=== PATIENT | male | born 1970 | race Caucasian/White ===

== ENCOUNTER 2018-01-07 14:26 | Emergency (ER) | payer OTHER, SELFPAY ==
[2018-01-07 14:26] VITALS: BP 115/83; PULSE 104; RESP 16; TEMP 36.5; O2SAT 97; BMI 30.2
[2018-01-07 15:28] VITALS: BP 126/94; PULSE 81; RESP 16; O2SAT 100
--- NOTE | 2018-01-07 15:30 | ED.RN ---
solid formed stool sample obtained. no signs of blood present. no signs of cdiff present.
--- NOTE | 2018-01-07 15:37 | ED.VISSUMM ---
- ER Visit Summary Date of Service: 01/07/18 Chief Complaint: Abdominal pain History of Present Illness: The patient is a 47 M presenting with abdominal pain. He states it started on Saturday. He has had nausea, vomiting, diarrhea. He denies blood in his stool or emesis. He went to urgent care today. He states when the nurse practitioner examined him he started to have right-sided abdominal pain. He was sent to the ED for further evaluation. Physical Examination: Vitals are stable. Patient is afebrile. Alert no acute distress. HEENT exam is unremarkable. Neck is supple. Lungs are clear and equal bilaterally. Heart is regular rate and rhythm. Abdomen is soft right upper quadrant and epigastric tenderness with no rebound or guarding Extremities are unremarkable. Skin is warm and dry. No focal neurologic deficit. Remainder of exam is unremarkable. Emergency Department Course and Treatment: Patient given IV fluids, Zofran. CBC shows a platelet count of 83 which is at his baseline. Chemistries show sodium 134, glucose 424, BUN 19. Total bili is 2.9, direct bili 0.56, ALT 70, lipase is normal. Urinalysis shows glucose, no infection. Records were reviewed and his total bili was 3.3 on 05/07/17. He states he has never been told that his bilirubin has been high. He was given insulin subcutaneously and IV fluids. CT abdomen pelvis shows fatty infiltration of the liver, splenomegaly. On reevaluation, patient is resting comfortably. He declines nausea medication for home. He is advised to follow-up with his primary care physician. He is advised return ED for any worsening complaints. Disposition: Discharge home Impression: Vomiting, diarrhea This note was generated with [employer] dictation software. It may contain incorrect words, spelling, and punctuation that were not noted in review of the chart prior to signing ED Disposition - Plan for ED Patient: Chief Complaint: Abd Pain Referrals: Robles Purvis MD [NON-STAFF] -
[2018-01-07 15:42] LABS: Bacteria 0 SEEN /hpf (None Seen); Mucous, Urine 0 SEEN /hpf (<or=2+); White Blood Cells 0 SEEN /hpf (0-5)
[2018-01-07 15:48] LABS: Color, Urine Yellow (Yellow); Glucose, Dipstick 1000 mg/dl (Normal); Ketone-Dipstick 5 mg/dl (Negative); Leukocyte Esterase-Dipstick Negative /ul (Negative); Nitrite-Dipstick Negative (Negative); Occult Blood-Urine 10 /ul (Negative); Protein-Dipstick 30 mg/dl (Negative); Specific Gravity, Urine 1.015 (1.002-1.030); Urine Bilirubin Dipstick Negative (Negative); Urine Clarity Clear (Clear); Urine Urobilinogen Normal (Normal)
[2018-01-07] MEDS: Ondansetron 4 MG/2 ML Vial IV (15:49)
[2018-01-07] MEDS: 0.9% Normal Saline 1,000 ML 1000 ML IV (15:49)
[2018-01-07 16:02] LABS: Red Blood Cells-Urine 0-5 SEEN /hpf (0-5); Squamous Epithelial Cells - UA 0-5 SEEN /hpf (0-5)
[2018-01-07 16:05] LABS: Absolute Neutrophil Count 5.5 X10^3/uL (2.0-7.7); Basophil# 0.03 X10^3/uL; Basophil% 0.4 % (0-1); Eosinophil# 0.05 X10^3/uL; Eosinophils% 0.4 % (0-5); Hematocrit 50.3 % (40-54); Lymphocyte % 19.5 % (19-41); Mean Corp Hgb Conc 31.8 g/gl (32-36); Mean Corpuscular Hgb 25.6 pg (27.0-32.0); Mean Corpuscular Volume 80.6 fL (80-94); Mean Platelet Vol. 10.2 fl (6.2-12.0); Monocyte# 0.51 X10^3/uL; Monocyte% 6.7 % (0-10); Neutrophil # 5.54 X10^3/uL (2.7-7.7); POSITIVE COUNT YES; POSITIVE DIFFERENTIAL NO; POSITIVE MORPHOLOGY NO; Platelet Count 83 K/mm3 (150-450); RBC Distribution Width CV 15.5 % (11.6-14.6); RBC Distribution Width SD 44.1 fl (35.1-43.9); Red Blood Count 6.24 M/mm3 (4.6-6.2); White Blood Count 7.7 K/mm3 (4.4-11.0)
[2018-01-07 16:09] LABS: AST(SGOT) 26 U/L (15-37); Alanine Aminotransfer ALT/SGPT 70 U/L (16-61); Albumin, Serum 4.4 g/dL (3.2-5.0); Alkaline Phosphatase 100 U/L (45-117); Anion Gap 8 (5-15); BUN 19 mg/dL (7-18); BUN/Creat Ratio 16.2 RATIO (10-20); Bilirubin, Direct 0.56 mg/dL (0.00-0.30); Calcium,Total 9.2 mg/dL (8.5-10.1); Chloride 97 mmol/L (98-107); Creatinine, Serum 1.17 mg/dL (0.70-1.30); EST Glomerular Filtration Rate 71 mL/min (>60); Est Glom Filt Rate - Afr Amer 86 mL/min (>60); Estimated Creatinine Clearance 73.76 ml/min; Globulin 3.7 g/dL (2.2-4.2); Glucose 424 mg/dL (74-106); Lipase 256 U/L (73-393); Protein, Total 8.1 g/dL (6.4-8.2); Sodium Level 134 mmol/L (136-145)
[2018-01-07] MEDS: Insulin Lispro 100 UNIT/ML INSULN.PEN 15 UNIT SC (16:30)
[2018-01-07] MEDS: 0.9% Normal Saline 1,000 ML 999 ML IV (17:20)
[2018-01-07 17:55] LABS: Bedside Glucose 302 mg/dL (70-110)
--- NOTE | 2018-01-07 17:58 | ED.DEP ---
ED Disposition - Plan for ED Patient: Chief Complaint: Abd Pain Instructions: ED Abdominal Pain Unkn Cause Referrals: Robles Purvis MD [NON-STAFF] -
[2018-01-07 18:11] VITALS: BP 109/78; PULSE 86; RESP 16; O2SAT 98
== END 2018-01-07 18:11 | disposition home or self-care (01) ==
PROVIDERS: Emergency Provider Emergency Medicine
DX: R19.7 Diarrhea, unspecified (principal); R11.2 Nausea with vomiting, unspecified; E11.9 Type 2 diabetes mellitus without complications; E78.00 Pure hypercholesterolemia, unspecified; Z79.4 Long term (current) use of insulin; Z79.899 Other long term (current) drug therapy
CPT/HCPCS: 74177; 80048; 80076; 81001; 82962; 83690; 85025; 96361; 96374; 99283; J7030; A4216; J2405

== ENCOUNTER 2018-02-25 00:02 | Emergency (ER) | payer OTHER, SELFPAY ==
[2018-02-25 00:03] VITALS: BP 158/103; PULSE 97; RESP 17; TEMP 36.3; O2SAT 98; BMI 30.3
--- NOTE | 2018-02-25 00:36 | CT_ITS ---
STUDY: CT BRAIN WITHOUT CONTRAST REASON FOR EXAM: Male, 48 years old. Headaches and cough RADIATION DOSAGE (If Supplied By Facility): CTDIvol = ( 44.99 ) mGy, DLP = ( 812.98 ) mGycm TECHNIQUE: Transaxial CT imaging of the brain was performed without administration of intravenous contrast material. Individualized dose optimization techniques were used for this CT. COMPARISON: None. FINDINGS: Normal soft tissue structures. Normal calvarium. Normal size ventricles and extra-axial spaces for the patient's age. Normal white matter tracts of the cerebral hemispheres. Normal basal ganglia and thalami. Normal brainstem. Normal cerebellum. There is no intracranial hemorrhage. There are no findings of an acute ischemic infarction. Normal visualized paranasal sinuses. CT/Brain/Head without Contrast IMPRESSION: Normal unenhanced CT scan of the brain. No acute findings in the brain Electronically Signed: Alessio Bridges MD at 1:28 EDT Tel , Service support ,
--- NOTE | 2018-02-25 00:36 | EKG12_ITS ---
Test Reason : HEADACHE Blood Pressure : / mmHG Vent. Rate : 082 BPM Atrial Rate : 082 BPM P-R Int : 148 ms QRS Dur : 088 ms QT Int : 368 ms P-R-T Axes : 027 -25 055 degrees QTc Int : 429 ms Normal sinus rhythm Leftward axis Confirmed by CLIFFORD NG, JESSICA ([id number]), subeditor TAMIKO SOOD ([id number] on 02/27/2018 1:40:05 PM Referred By: NAWAF Confirmed By:JESSICA HORTON MD
--- NOTE | 2018-02-25 00:39 | ED.DCSUM_ITS ---
- ER Visit Summary Date of Service: 02/25/18 Chief Complaint: [] Headache for last few days History of Present Illness: The patient is a 48 M stated he has had intermittent headache for last few days as well as muscle aches and nausea. He had a recent cough but that went away. He strained his neck on Saturday and thinks that might be the cause of his headaches. No home treatment. They wax and wane and last for a few hours at a time. Currently he has a headache in the back of his head that is mild to moderate. The reason he came in tonight is because he had a near syncopal episode. He felt lightheaded at work and his body felt tingly. He stated he is been feeling this on and off throughout the day. He felt sweaty and thinks it might of been from getting up too quickly. No chest pain or other symptoms. Denies any other medical problems other than diabetes. No heart problems. Physical Examination: [] Vital signs reviewed General: Well-nourished well-developed Head: Normocephalic atraumatic Eyes: Pupils equal round and reactive to light extraocular movements intact ENT: TMs clear no hemotympanum no trauma Neck: Nontender full range of motion Cardiovascular: Regular rate rhythm no murmurs normal S1-S2 Respiratory: No distress clear to auscultation bilaterally chest nontender Abdomen: Soft nontender nondistended normal bowel sounds no masses Back: Nontender no CVA tenderness Extremities: Nontender active range of motion ?4 extremities no trauma Skin: Normal color no trauma Neuro alert oriented cranial nerves II through XII intact normal strength sensation reflexes Test Results: [] Emergency Department Course and Treatment: [] Patient given IV fluids and Toradol. Lab work EKG and CT of his head obtained and CT head showed nothing acute. EKG shows sinus at 82 with no ischemia. CBC is normal except chronically low platelets. 74,000 today. Prior was 83,050 9000. CBC is normal except sodium 135. Glucose is 439. He normally runs high. He has not taken his insulin today. Troponin is negative. Patient was given a liter of fluids. Given IV Toradol and oral Tylenol. At this time he states he still has a headache but does feel better. I feel he can be discharged. He does have this chronic leg pain and numbness. His doctor just started him on gabapentin for possible diabetic neuropathy. He has had a lightheaded near syncopal episode. I do not think he needs admitted for this. I feel he can follow-up as an outpatient and I do not think he has had a subarachnoid hemorrhage. CT shows no mass lesions. Patient will take insulin at home Treatment Plan: [] Disposition: [] Impression: [] Headache with neck strain Near syncopal episode Uncontrolled diabetes Chronic thrombocytopenia This note was generated with [employer] dictation software. It may contain incorrect words, spelling, and punctuation that were not noted in review of the chart prior to signing ED Disposition - Plan for ED Patient: Chief Complaint: Headache Referrals: Audrey Bello, RN [Primary Care Provider] -
[2018-02-25] MEDS: 0.9% Normal Saline 1,000 ML 1000 ML IV (00:56)
[2018-02-25] MEDS: Ketorolac 30 MG/ML Syringe IV (00:56)
[2018-02-25 01:22] LABS: Mean Corpuscular Volume 80.1 fL (80-94); Mean Platelet Vol. 10.2 fl (6.2-12.0); Platelet Count 74 K/mm3 (150-450); RBC Distribution Width CV 15.9 % (11.6-14.6); RBC Distribution Width SD 45.2 fl (35.1-43.9); Red Blood Count 5.37 M/mm3 (4.6-6.2); White Blood Count 4.9 K/mm3 (4.4-11.0)
[2018-02-25 01:23] LABS: Hemoglobin 15.6 g/dl (13.0-16.5); Mean Corp Hgb Conc 36.3 g/gl (32-36); Mean Corpuscular Hgb 29.3 pg (27.0-32.0); Scan Indicated on CBC? Y/N NO
[2018-02-25 01:25] LABS: Anion Gap 9 (5-15); BUN 15 mg/dL (7-18); BUN/Creat Ratio 14.3 RATIO (10-20); Calcium,Total 8.7 mg/dL (8.5-10.1); Chloride 101 mmol/L (98-107); Creatinine, Serum 1.05 mg/dL (0.70-1.30); EST Glomerular Filtration Rate 81 mL/min (>60); Est Glom Filt Rate - Afr Amer 97 mL/min (>60); Estimated Creatinine Clearance 84.14 ml/min; Glucose 439 mg/dL (74-106); Sodium Level 135 mmol/L (136-145)
--- NOTE | 2018-02-25 01:53 | ED.DEP ---
ED Disposition - Plan for ED Patient: Disposition: Home or Assisted Living Chief Complaint: Headache Instructions: ED Headache Tension, ED Near Syncope Unkn Referrals: Audrey Bello RN [Primary Care Provider] -
[2018-02-25] MEDS: Acetaminophen 500 MG Tablet 1000 MG PO (02:02)
[2018-02-25 02:10] VITALS: BP 130/112; PULSE 77; RESP 14; O2SAT 96
== END 2018-02-25 02:33 | disposition home or self-care (01) ==
PROVIDERS: Emergency Provider Emergency Medicine
DX: R55 Syncope and collapse (principal); R51 Headache; E11.65 Type 2 diabetes mellitus with hyperglycemia; D69.6 Thrombocytopenia, unspecified; S16.1XXA Strain of muscle, fascia and tendon at neck level, initial encounter; Z79.4 Long term (current) use of insulin; Z79.899 Other long term (current) drug therapy; X58.XXXA Exposure to other specified factors, initial encounter; Y93.89 Activity, other specified; Y92.89 Other specified places as the place of occurrence of the external cause; Y99.8 Other external cause status
CPT/HCPCS: 70450; 80048; 84484; 85027; 93005; 96361; 96374; 99285; J7030; A4216

== ENCOUNTER 2018-06-06 05:43 | Day surgery (SDC) | payer OTHER, SELFPAY ==
[2018-06-06 06:07] VITALS: BP 124/85; PULSE 83; RESP 14; TEMP 37.2; O2SAT 96; BMI 14.0
[2018-06-06 06:21] LABS: Bedside Glucose 372 mg/dL (70-110)
[2018-06-06 07:56] VITALS: BP 119/67; BP 124/85; PULSE 88; RESP 16; TEMP 36.2; O2SAT 98
--- NOTE | 2018-06-06 07:58 | PCM.OP.BLANK ---
Operative Report Date of Procedure: 06/06/18 Preoperative diagnosis: Right Carpal tunnel syndrome Postoperative diagnosis: Same Title of operation: Open carpal tunnel release Right Surgeon: Dr. Leroy Murcia Anesthesia: Local w MAC Indications for surgery: Patient seen and evaluated in the office. Diagnosed with carpal tunnel syndrome. They have failed adequate nonoperative treatment. Due to persistent symptoms they wish to proceed with carpal tunnel release surgery appropriate informed consent was obtained and signed. Details of procedure: Patient was taken to the OR and transferred to the OR table. Appropriate timeouts were performed. Well-padded tourniquet was applied to the operative upper extremity proximally. Sedation given by anesthesia provider. Area was prepped with Betadine and alcohol. Local anesthetic was administered using 9 cc of 2% lidocaine plain. Operative extremity was prepped padded and draped in usual orthopedic sterile fashion for the procedure. Limb was exsanguinated. Tourniquet applied to 250 mmHg. Three centimeter incision was made over the palm. Carefully taken through skin, subcutaneous tissue, down onto the transverse carpal ligament. Transverse carpal ligament was opened at the midportion with a knife. Elevator was carefully placed underneath the transverse carpal ligament in a distal direction. I dissected down onto that with a knife. Elevator was then placed in a proximal direction, again directly underneath the transverse carpal ligament. I dissected down on that with a knife. Scissors were used at the proximal extent placed under direct visualization. This fully released the proximal extent of the transverse carpal ligament. At this point my small finger was placed proximally and distally to assure complete release of the transverse carpal ligament over the median nerve. FPL tendon was noted. No significant abnormalities were noted at the region of the carpal canal. Tourniquet was let down. Bleeding controlled with the Bovie. Wound thoroughly irrigated. No undue bleeding noted. Skin edges were reapproximated with a 4-0 nylon. Sterile bandage was applied. Patient was awoken from the anesthetic. Transferred to the room bed. To recovery room in satisfactory condition. Patient will be discharged home. Ice and elevation recommended. Pain medication as needed. Follow-up in the office next week as scheduled. This note was generated with [employer] dictation software. It may contain incorrect words, spelling, and punctuation that were not noted in checking the note before signing.
[2018-06-06 08:00] VITALS: BP 124/85; BP 127/89; PULSE 76; RESP 16; O2SAT 97
[2018-06-06 08:05] VITALS: BP 124/85; BP 125/92; PULSE 78; RESP 16; O2SAT 97
[2018-06-06 08:11] VITALS: BP 117/86; BP 124/85; PULSE 82; RESP 16; TEMP 36.2; O2SAT 96
[2018-06-06 08:55] VITALS: BP 124/85
--- OUTSIDE RECORDS SUMMARY | 2018-08-10 13:56 | XMS RPT_ITS ---
:1970 Author Organization OHIP Support Name Relationship Address Phone VIRI FREY Unavailable [address] + [address] [place] [address] TESSA, LIDYA Unavailable [address] + [place] [address] + [place] [address] TESSA, LIDYA Unavailable Unavailable + NOT GIVEN Unavailable Unavailable Unavailable NOT GIVEN Unavailable Unavailable Unavailable TESSA, LIDYA Unavailable Unavailable + NOT GIVEN Unavailable Unavailable Unavailable TESSA, LIDYA Unavailable Unavailable + NOT GIVEN Unavailable Unavailable Unavailable NOT GIVEN Unavailable Unavailable Unavailable NOT GIVEN Unavailable Unavailable Unavailable TESSA, LIDYA Unavailable Unavailable + NOT GIVEN Unavailable Unavailable Unavailable VIRI FREY Unavailable [address] + [address] [place] [address] TESSA, LIDYA Unavailable [address] + [place] [address] + [place] [address] SONUBALTAZARVIRI Unavailable [address] + [address] [place] [address] TESSA, LIDYA Unavailable [address] + [place] [address] + [place] [address] NOT GIVEN Unavailable Unavailable Unavailable TESSA, LIDYA Unavailable Unavailable + NOT GIVEN Unavailable Unavailable Unavailable TESSA, LIDYA Unavailable Unavailable + NOT GIVEN Unavailable Unavailable Unavailable TESSA, LIDYA Unavailable Unavailable + NOT GIVEN Unavailable Unavailable Unavailable Care Team Providers Name Role Phone NIKKO DUKES (INTERNAL SECURITY MANAGER) Attending Unavailable LAURY LINDSEY (CONFERENCE RESERVATIONIST) Attending Unavailable LAURY LINDSEY (CONFERENCE RESERVATIONIST) Referring Unavailable SHELDON CARROLL Attending Unavailable NIKKO DUKES (INTERNAL SECURITY MANAGER) Referring Unavailable OMDEYANIRA CAYETANO DO Admitting Unavailable OMDEYANIRA CAYETANO DO Attending Unavailable CAYETANO STALLWORTH DO Primary Care Unavailable CYNTHIA HAAS MD Consulting Unavailable PROVIDER, UNKNOWN Consulting Unavailable OMDEYANIRA CAYETANO DO Admitting Unavailable CAYETANO STALLWORTH DO Attending Unavailable CAYETANO STALLWORTH DO Primary Care Unavailable CNYTHIA HAAS MD Consulting Unavailable CYNTHIA HAAS MD Referring Unavailable PROVIDER, UNKNOWN Consulting Unavailable CAMERON, DR RAJ Arthur Admitting Unavailable CAMERON, DR RAJ Arthur Attending Unavailable CYNTHIA HAAS MD Referring Unavailable CAMERON, DR RAJ Arthur Primary Care Unavailable CYNTHIA HAAS MD Consulting Unavailable PROVIDER, UNKNOWN Consulting Unavailable MART HENDRIX CNP Admitting Unavailable MART HENDRIX CNP Attending Unavailable MART HENDRIX CNP Primary Care Unavailable CYNTHIA HAAS MD Consulting Unavailable PROVIDER, UNKNOWN Consulting Unavailable MART HENDRIX CNP Admitting Unavailable MART HENDRIX CNP Attending Unavailable MART HENDRIX CNP Primary Care Unavailable CYNTHIA HAAS MD Consulting Unavailable PROVIDER, UNKNOWN Consulting Unavailable HABERBERGER, JACKIE M Admitting Unavailable HABERBERGER, JACKIE M Attending Unavailable MART HENDRIX CNP Referring Unavailable HABERBERGER, JACKIE M Primary Care Unavailable MART HENDRIX CNP Consulting Unavailable PROVIDER, UNKNOWN Consulting Unavailable PROVIDER, UNKNOWN Consulting Unavailable MART HENDRIX CNP Admitting Unavailable MART HENDRIX CNP Attending Unavailable MART HENDRIX CNP Primary Care Unavailable CYNTHIA HAAS MD Consulting Unavailable PROVIDER, UNKNOWN Consulting Unavailable RYAN, NAEEM PAC Admitting Unavailable RYAN, NAEEM PAC Attending Unavailable RYAN, NAEEM PAC Primary Care Unavailable CYNTHIA HAAS MD Consulting Unavailable PROVIDER, UNKNOWN Consulting Unavailable SIMON MYERS Admitting Unavailable SIMON MYERS Attending Unavailable SIMON MYERS Primary Care Unavailable CYNTHIA HAAS MD Consulting Unavailable CYNTHIA HAAS MD Referring Unavailable PROVIDER, UNKNOWN Consulting Unavailable LEROY SOOD DR Admitting Unavailable LEROY SOOD DR Attending Unavailable LEROY SOOD DR Primary Care Unavailable CYNTHIA HAAS MD Consulting Unavailable PROVIDER, UNKNOWN Consulting Unavailable MART HENDRIX CNP Admitting Unavailable MART HENDRIX CNP Attending Unavailable MART HENDRIX CNP Primary Care Unavailable CYNTHIA HAAS MD Consulting Unavailable PROVIDER, UNKNOWN Consulting Unavailable Leroy Sood Attending Unavailable Leroy Sood Referring Unavailable Mart Hendrix Primary Care Unavailable Becky Darden Attending Unavailable Mart Hendrix Primary Care Unavailable Mart Hendrix Primary Care Unavailable Myles Ayala Attending Unavailable PROBLEMS PROBLEMS DATE TYPE CONDITION / CODE ATTENDING STATUS SOURCE 05/26/2018 Principle Type 2 diabetes MART HENDRIX Active Rene Pomerejeevan Diagnosis mellitus with 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 / Repository E1121(ICD-10) 09/24/2017 Admitting Headache / DR RAJ BARNES Active Rene Pomerene Diagnosis R51(ICD-10) [facility] Repository 09/24/2017 Principle Migraine, DR RAJ BARNES Active Rene Pomerene Diagnosis unspecified, not [facility] without status Repository migrainosus / L62782(ICD-10) 07/30/2017 Active Unknown / SHELDON CARROLL Active Jansen UNK(Unknown) [facility] [place] Repository 09/28/2013 Active Type 2 diabetes NA Active [place] 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 / Repository E11.21(ICD-10) 09/28/2013 Active Type 2 diabetes NA Active [place] mellitus with [facility] hyperglycemia / [place] E11.65(ICD-10) Repository PROCEDURES PROCEDURES No Procedure Records FoundRESULTS RESULTS OPERATIVE REPORT Observed: 06/06/2018 Status: F Source: [place] 8:00 AM [facility] REPOSITORY [facility] Medical Records Department [address] [place] [address] Operative Report 06/06/18 0758 MR#: [id number] Acct: [id number] Name: TITI ZARATE Rep #: [id number] : 1970 48 From: Leroy Sood MD PCP: TIM Amor Status: REG VAC Y Location: [place] [address] Operative Report Date of Procedure: 06/06/18 Preoperative diagnosis: Right Carpal tunnel syndrome Postoperative diagnosis: Same Title of operation: Open carpal tunnel release Right Surgeon: Dr. Leroy Sood Anesthesia: Local w MAC Indications for surgery: Patient seen and evaluated in the office. Diagnosed with carpal tunnel syndrome. They have failed adequate nonoperative treatment. Due to persistent symptoms they wish to proceed with carpal tunnel release surgery appropriate informed consent was obtained and signed. Details of procedure: Patient was taken to the OR and transferred to the OR table. Appropriate timeouts were performed. Well-padded tourniquet was applied to the operative upper extremity proximally. Sedation given by anesthesia provider. Area was prepped with Betadine and alcohol. Local anesthetic was administered using 9 cc of 2% lidocaine plain. Operative extremity was prepped padded and draped in usual orthopedic sterile fashion for the procedure. Limb was exsanguinated. Tourniquet applied to 250 mmHg. Three centimeter incision was made over the palm. Carefully taken through skin, subcutaneous tissue, down onto the transverse carpal ligament. Transverse carpal ligament was opened at the midportion with a knife. Elevator was carefully placed underneath the transverse carpal ligament in a distal direction. I dissected down onto that with a knife. Elevator was then placed in a proximal direction, again directly underneath the transverse carpal ligament. I dissected down on that with a knife. Scissors were used at the proximal extent placed under direct visualization. This fully released the proximal extent of the transverse carpal ligament. At this point my small finger was placed proximally and distally to assure complete release of the transverse carpal ligament over the median nerve. FPL tendon was noted. No significant abnormalities were noted at the region of the carpal canal. Tourniquet was let down. Bleeding controlled with the Bovie. Wound thoroughly irrigated. No undue bleeding noted. Skin edges were reapproximated with a 4-0 nylon. Sterile bandage was applied. Patient was awoken from the anesthetic. Transferred to the room bed. To recovery room in satisfactory condition. Patient will be discharged home. Ice and elevation recommended. Pain medication as needed. Follow-up in the office next week as scheduled. This note was generated with E96 dictation software. It may contain incorrect words, spelling, and punctuation that were not noted in checking the note before signing. 06/06/18 0800 <Electronically signed by Leroy Sood MD> Date Leroy Sood MD CC: EYEGLASS LENS GRINDER-C Mart Hendrix; Leroy Sood MD Signed BEDSIDE GLUCOSE Collected: 06/06/2018 Status: F Source: [place] 6:12 AM [facility] REPOSITORY TYPE CODE TESTS RESULT OUT OF REFERENCE UNITS RANGE LAB L501.080 70-110 mg/dL High BEDSIDE GLU 372 Result Comment: MANAGEMENT OF PATIENT CARE PER NURSING PROTOCOL Performed By: #### L501.080 #### [facility] Laboratory Point of Care [facility] [place] [address] URINALYSIS Collected: 04/15/2018 Status: F Source: [place] 5:30 AM [facility] REPOSITORY TYPE CODE TESTS RESULT OUT OF REFERENCE UNITS RANGE LAB URINALYSIS (LOINC) URINALYSIS Result Comment: URINALYSIS LAB Specimen Type(LOINC) Specimen Type UNSPECIFIED LAB Color(LOINC) NORMAL: YELLOW Color yellow LAB Clarity(LOINC) NORMAL: CLEAR Clarity clear LAB ph(LOINC) NORMAL: 5.0-8.0 ph 5 LAB Protein(LOINC) NORMAL: NEGATIVE Protein 100 Abnormal LAB Glucose(LOINC) NORMAL: NORMAL Glucose 250 Abnormal LAB Ketone(LOINC) NORMAL: NEGATIVE Ketone 50 Abnormal LAB Bilirubin(LOINC) NORMAL: NEGATIVE NEG Bilirubin LAB Blood(LOINC) NORMAL: NEGATIVE Blood 10 Abnormal LAB Urobilinog(LOINC NORMAL: ) NORMAL NORM Urobilinog LAB Sp NORMAL: [place](LOINC) 1.010-1.030 Sp 1.025 [place] LAB Nitrite(LOINC) NORMAL: NEGATIVE Nitrite NEG LAB Leukocytes(LOINC NORMAL: ) NEGATIVE NEG Leukocytes LAB Microscopic(LOIN C) SEE Microscopic BELOW Result Comment: MICROSCOPIC LAB Wbc(LOINC) 0-5/hpf Wbc NONE LAB Rbc(LOINC) 0-3/hpf Rbc NONE LAB Casts(LOINC) Casts NONE LAB Crystals(LOINC) Crystals NONE LAB Amorphous(LOINC) Amorphous NONE LAB Bacteria(LOINC) Bacteria TRACE LAB Epi Cells(LOINC) Epi Cells NONE LAB Mucous(LOINC) Mucous 1+ LAB Yeast(LOINC) Yeast NONE Performed By: #### [id number] #### [facility],[address] [place] [address] CBC Collected: 04/15/2018 Status: F Source: [facility] 4:25 AM [facility] REPOSITORY TYPE CODE TESTS RESULT OUT OF RANGE REFERENCE UNITS LAB CBC(LOINC) CBC Result Comment: CBC-COMPLETE BLOOD COUNT LAB WBC(LOINC) 4.5 - 10.8 x 10EE3/UL WBC 6.6 LAB RBC(LOINC) 4.50 - x 10EE6/UL 6.00 RBC 5.81 LAB HEMOGLOBIN(LOINC 13.0 - g/dl ) 17.5 HEMOGLOBIN 17.3 LAB HEMATOCRIT(LOINC 40.0 - % ) 52.0 HEMATOCRIT 47.5 LAB MCV(LOINC) 81 - 98 fl MCV 82 LAB MCH(LOINC) 27 - 33 pg MCH 30 LAB MCHC(LOINC) 32 - 36 X10 3 MCHC High 37 LAB RDW/CV(LOINC) 12.0 - % 15.6 RDW/CV High 17.1 LAB PLATELET(LOINC) 150 - 450 x10EE3/UL PLATELET Low 73 LAB MPV(LOINC) 6.4 - 10.5 fl MPV 8.3 Result Comment: AUTOMATED DIFFERENTIAL LAB NEUT %(LOINC) 46.0 - 76.0 % NEUT % 71.5 LAB LYMPH %(LOINC) 20.0 - 45.0 % LYMPH % 21.3 LAB MONOS %(LOINC) 0.0 - 10.0 % MONOS % 5.5 LAB EO %(LOINC) 0.0 - 7.0 % EO % 0.9 LAB BASO %(LOINC) 0.0 - 2.0 % BASO % 0.8 LAB Lymph #(LOINC) 0.80 - 2.80 x10EE3/U L Lymph # 1.40 LAB Neut #(LOINC) 1.50 - 7.10 x10EE3/U L Neut # 4.70 LAB [place] #(LOINC) 0.20 - 1.00 x10EE3/U L [place] # 0.40 LAB EO #(LOINC) 0.00 - 0.50 x10EE3/U L EO # 0.10 LAB Baso #(LOINC) 0.00 - 0.10 x10EE3/U L Baso # 0.10 LAB MANUAL DIFF(LOINC) MANUAL DIFF N/A LAB MORPHOLOGY(LOINC ) MORPHOLOGY N/A Result Comment: {CD] Performed By: #### [id number] #### [place] [address] KETONE, BLOOD, QUAL Collected: 04/15/2018 Status: F Source: [facility] 4:25 [facility] REPOSITORY TYPE CODE TESTS RESULT OUT OF REFERENCE UNITS RANGE LAB KETONES(LO MEAGHAN - INC) NEGATIVE KETONES NEGATIVE Result Comment: SPECIMEN SERUM Performed By: #### [id number] #### [place] [address] LIPASE Collected: 04/15/2018 Status: F Source: [facility] 4:25 [facility] REPOSITORY TYPE CODE TESTS RESULT OUT OF REFERENCE UNITS RANGE LAB LIPASE(LOIN 18.0 - 51.0 U/L C) LIPASE 44.0 Performed By: #### [id number] #### [place] [address] TROPONIN Collected: 04/15/2018 Status: F Source: [facility] 4:25 [facility] REPOSITORY TYPE CODE TESTS RESULT OUT OF REFERENCE UNITS RANGE LAB TROPONIN 0.00 - 0.05 ng/ml I(LOINC) TROPONIN I <0.01 Result Comment: Elevated troponin (above the 99th percentile) usually indicates myocardial ischemia. Results must be interpreted within the clinical setting. 1.Non-ischemic pathology can also cause elevated troponin levels (e.g., acute pulmonary embolism, myocarditis, pericarditis, heart failure, intracranial injury, rhabdomyolisis, sepsis, shock and renal insufficiency). 2.Approximately 1% of healthy adults have elevated troponin levels. 3.Analytical false positive results rarely occur(due to multiple interferences such as heterophile antibodies). Performed By: #### [id number] #### [facility],[address] [place] [address] CMP WITH EGFR Collected: 04/15/2018 Status: F Source: [facility] 4:25 AM [facility] REPOSITORY TYPE CODE TESTS RESULT OUT OF RANGE REFERENCE UNITS LAB CMP with eGFR(LOINC) CMP with eGFR Result Comment: COMPREHENSIVE METABOLIC PANEL LAB SODIUM(LOINC) 136 - 145 mmol/l SODIUM Low 133 LAB POTASSIUM(LOINC) 3.5 - 5.1 mmol/L POTASSIUM 3.9 LAB CHLORIDE(LOINC) 98 - 107 mmol/L CHLORIDE 99 LAB CO2(LOINC) 21.0 - mmol/L 31.0 CO2 23.8 LAB GLUCOSE(LOINC) 74 - 106 mg/dl GLUCOSE High 392 LAB BUN(LOINC) 6 - 20 mg/dl BUN 15 LAB CREATININE(LOINC) 0.7 - 1.3 mg/dl CREATININE 0.8 LAB AST/SGOT(LOINC) 13 - 39 U/L AST/SGOT 25 LAB ALK PHOS(LOINC) 38 - 126 U/L ALK PHOS 81 LAB CALCIUM(LOINC) 8.6 - mg/dl 10.2 CALCIUM 9.3 LAB TOTAL 6.4 - 8.3 g/dl PROTEIN(LOINC) TOTAL PROTEIN 6.7 LAB ALBUMIN(LOINC) 3.4 - 4.8 g/dL ALBUMIN 4.6 LAB GLOBULIN(LOINC) 1.5 - 3.8 G/DL GLOBULIN 2.1 LAB A/G RATIO(LOINC) 0.9 - 1.6 A/G High RATIO 2.2 LAB TOTAL BILI(LOINC) 0.0 - 1.5 mg/dl TOTAL High BILI 2.3 LAB B/C RATIO(LOINC) 0 - 30 ratio B/C RATIO 19 LAB ALT/SGPT(LOINC) 10 - 40 U/L ALT/SGPT High 46 LAB ANION GAP(LOINC) 10 - 20 mmol/L ANION GAP 14 LAB AGE(LOINC) years AGE 48 LAB eGFR(LOINC) 60 - 999 ML/MINUTE eGFR >60 LAB eGFR(AA)(LOINC) 60 - 999 ML/MINUTE eGFR(AA) >60 Result Comment: ACCORDING TO THE NATIONAL KIDNEY DISEASE EDUCATION PROGRAM(NKDE), A NORMAL eGFR IS A VALUE GREATER THAN OR EQUAL TO 60 ML/MIN/1.73 SQ METERS. CHRONIC KIDNEY DISEASE: <60mL/MIN/1.73 SQ METERS KIDNEY FAILURE: <15mL/MIN/1.73 SQ METERS THIS TEST SHOULD ONLY BE USED FOR PATIENTS 18 YEARS OF AGE AND OLDER. Performed By: #### [id number] #### [facility],[address] [place] [address] CHEST 1 VIEW Observed: 04/15/2018 Status: F Source: [facility] 4:21 AM [place] [address] Patient: TITI ZARATE Phone#: : 1970 Age: 48 Gender: M Pt. Type: ER Account: [id number] Location: [facility] Ordering: SIMON MYERS Exam Date: 04/15/2018/4:00 Family Phys: CYNTHIA HAAS Charge Code: [id number] Physician: [place] Order #: [id number] DLP Dose#: PROCEDURE: X-RAY CHEST 1 VIEW COMPARISON: [facility], XR, CHEST AP, 05/07/2017, 21:41. INDICATIONS: Cough FINDINGS: LUNGS: Normal. No significant pulmonary parenchymal abnormalities. VASCULATURE: Normal. Unremarkable pulmonary vasculature. CARDIAC: Normal. No cardiac silhouette abnormality or cardiomegaly. MEDIASTINUM: Normal. No visible mass or adenopathy. PLEURA: Normal. No effusion or pleural thickening. BONES: Normal. No fracture or visible bony lesion. OTHER: Negative. CONCLUSION: No acute disease. No significant change has occurred. Dictated by: Claudia Abbasi MD on 04/15/2018 at 8:44 Approved by: Claudia Abbasi MD on 04/15/2018 at 8:44 EMERGENCY REPORT Observed: 04/15/2018 Status: F Source: [place] 3:22 AM [facility] EMERGENCY ROOM REPORT NAME ACCOUNT SEX AGE ADMIT DISCHARGE PT MED. RECORD# NUMBER DATE DATE TITI BARTON [id number] Siri 48 04/15/18 04/15/18 3 C [id number] ROOM: ER DATE OF : 1970 DICTATING PHYSICIAN: Siomn Myers HISTORY OF PRESENT ILLNESS: This is a 48-year-old male with a past medical history of type 2 diabetes who presents with concern for feeling unwell with nausea that began approximately 2 hours ago. The patient also states that he has had 2 episodes of diarrhea. He denies any chest pain, shortness of breath, lightheadedness or dizziness. The patient states that he has been noncompliant with his diabetic medication. He denies any abdominal pain. PAST MEDICAL HISTORY: Type 2 diabetes. PAST SURGICAL HISTORY: Orthopedic surgeries. SOCIAL HISTORY: He denies any drugs, alcohol or tobacco abuse. PHYSICAL EXAMINATION: The patient appears well and nontoxic. Vital signs upon arrival show mild tachycardia but otherwise normal with normotensive blood pressure and afebrile. Head: Normocephalic without signs of trauma. Eyes: Extraocular motions are intact, PERRLA. Mouth: Oropharynx is clear with evidence of tacky mucous membranes. Lungs are clear to auscultation bilaterally without wheezing or rhonchi. Heart: S1 and S2 appreciated without murmurs. Abdomen is soft and nontender. No hepatosplenomegaly. Musculoskeletal: Muscle strength is +5/5 in the upper and lower extremities. Neurologic: Alert and oriented x3. Skin: No evidence of open wounds, ecchymosis, erythema or warmth. Psychiatric: Mood and affect are normal. DIAGNOSTIC DATA: EKG shows normal sinus rhythm without signs of ischemia. Chest x-ray shows no acute infiltrate. BGT on arrival is significantly elevated. Laboratories are within normal limits with no significant anion gap or signs of acidosis. Ketones are negative. EMERGENCY DEPARTMENT COURSE AND TREATMENT: Upon arrival, the patient appears well but is having some retching. His abdomen is benign on examination. Initial BGT is significantly elevated. DKA work-up was done, which shows no evidence of anion gap or acidosis. He is also ketone negative. He was given a total of 2 liters of normal saline. The patient did come down appropriately. No evidence of current infection. This is likely secondary to noncompliance. The patient was given 8 units of regular insulin. He will be asked to take his medication whenever he gets home. He was asked to follow up with his primary care provider within the next 2 to 3 days. He was Page 1 of 2 TITI ZARATE Emergency Room Report asked to return for any new or worsening symptoms. The patient was agreeable with this plan and was discharged home in stable condition. DIAGNOSES: 1. Hyperglycemia. 2. Nausea. Dictated By: Simon Myers DO 05/01/18 22:30 JOB #: [id number] Transcribed By: elmira 05/02/18 09:37 Electronically signed by: E-SIGN: Simon Myers D.O. 05/12/18 04:09 Page 2 of 2 TITI ZARATE Emergency Room Report HGB A1C Collected: 04/03/2018 Status: F Source: [place] 10:25 AM [facility] TYPE CODE TESTS RESULT OUT OF RANGE REFERENCE UNITS LAB HGB 4.4 - 6.4 % A1C(LOINC) High HGB A1C 7.5 Result Comment: {HB] {A1] Performed By: #### [id number] #### [place] [address] TSH Collected: 03/04/2018 Status: F Source: [place] 10:34 AM [facility] TYPE CODE TESTS RESULT OUT OF RANGE REFERENCE UNITS LAB TSH(LOINC) 0.34 - 5.60 uIU/ml TSH 2.21 Performed By: #### [id number] #### [place] [address] HGB A1C Collected: 03/04/2018 Status: F [facility] TYPE CODE TESTS RESULT OUT OF RANGE REFERENCE UNITS LAB HGB 4.4 - 6.4 % A1C(LOINC) High HGB A1C 6.9 Result Comment: {HB] {A1] Performed By: #### [id number] #### [place] [address] EMERGENCY REPORT Observed: 03/03/2018 Status: F Source: [place] 3:13 PM [facility] EMERGENCY ROOM REPORT NAME ACCOUNT SEX AGE ADMIT DISCHARGE PT MED. RECORD# NUMBER DATE DATE TYPE TITI ZARATE [id number] M 48 03/03/18 03/03/18 3 C [id number] ROOM: ER DATE OF : 1970 DICTATING PHYSICIAN: Jackie Corral CHIEF COMPLAINT: Hand and feet numbness and tingling that has been going on for several months. HISTORY OF PRESENT ILLNESS: He had a primary care physician who did no additional testing. He went to see another physician, and he said she put him on Neurontin and it did not help. It has continued for months on end where he gets tingling in his hand, tingling in his feet when he is grabbing the steering wheel or at work. He has not seen a neurologist or had any sort of workup for paresthesias. Nothing is new or acute. It has all been going for several months. No new headaches, blurred vision, double vision, history of MS, neck pain, chest pain, shortness of breath, nausea, vomiting, abdominal pain, diarrhea, fevers, chills, or neurological deficits. PAST MEDICAL HISTORY: Depression, anxiety, and high blood pressure. PAST SURGICAL HISTORY: See nursing notes. MEDICATIONS: See nursing notes. FAMILY HISTORY: Noncontributory. SOCIAL HISTORY: He denies alcohol, tobacco, or illicit drug abuse. REVIEW OF SYSTEMS: Ten systems reviewed and present above in the HPI. PHYSICAL EXAMINATION: Vital signs: Blood pressure needs to be rechecked manually at the bedside, respiratory rate 16, pulse 100, temperature 98.2, O2 saturation 96% on room air. General: Well-developed, well-nourished, well-hydrated, alert and oriented x3 with a GCS of 15. Head: Normocephalic and atraumatic. Pupils are equal and reactive to light bilaterally. Extraocular muscles intact. Mucous membranes are moist. Midface is stable. Teeth are intact. Trachea is midline. Neck is supple. Full range of motion of the neck without any difficulty. Heart rate and rhythm are regular without murmur, gallop, or rub. Lungs: Clear to auscultation bilaterally without wheeze, rales, or rhonchi. Abdomen: Soft. No reproducible tenderness, guarding, rebound, or rigidity. Skin is warm and dry without cyanosis, ecchymosis, petechia, or purpura. The patient ambulates without any difficulty. No focal or neurological deficits. Cranial nerves II-XII are grossly intact without focal or neurological deficits. Page 1 of 2 TITI ZARATE Emergency Room Report EMERGENCY DEPARTMENT COURSE AND TREATMENT: He describes chronic paresthesias, which can be a number of different things all of which need to be worked up as an outpatient by a neurologist who no one has referred him to. He needs testing for EMG, heavy metal poisoning and toxicity. This is not acute and the differential diagnosis is very broad, but would need to be started by a neurologist. DIAGNOSIS: Chronic paresthesias. PLAN/DISPOSITION: There is not any additional testing I can do in the emergency department. They CAT scanned his head in [place]. He says he is having trouble working. 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 I told him I cannot give him off work for extensive periods of time. I have however given him information to follow up with [facility], and he is calling tomorrow and scheduling an appointment, and we discussed specific reasons for ED return sooner. Dictated By: Jackie Corral DO 03/03/18 16:15 JOB #: [id number] Transcribed By: am 03/03/18 17:35 Electronically signed by: E-Sign: JACKIE CORRAL MD 04/08/18 12:00 Page 2 of 2 TITI ZARATE Emergency Room Report 12 LEAD ELECTROCARDIOGRAM Observed: 02/27/2018 Status: F Source: [place] 1:40 PM [facility] REPOSITORY [facility] Cardiovascular Services [address] [place] [address] [id number] 12 Lead EKG 02/25/18 0049 MR#: [id number] Acct: [id number] Name: TITI ZARATE Rep #: [id number] : 1970 48 From: Ty Oneill MD Attending Dr: Status: DEP ER Ordering Dr: Myles Ayala MD Date: 02/25/18 Location: ED Sex: M C Admitted: Test Reason : HEADACHE Blood Pressure : / mmHG Vent. Rate : 082 BPM Atrial Rate : 082 BPM P-R Int : 148 ms QRS Dur : 088 ms QT Int : 368 ms P-R-T Axes : 027 -25 055 degrees QTc Int : 429 ms Normal sinus rhythm Leftward axis Confirmed by TY ONEILL MD ([id number]), web editor TAMIKO SOOD ([id number]) on 02/27/2018 1:40:05 PM Referred By: NAWAF Confirmed By:TY ONEILL MD 02/27/18 1340 Date Ty Oneill MD CC: RITO Hendrix; Myles Ayala MD Signed DISCHARGE INSTRUCTION Observed: 02/25/2018 Status: F Source: CHAD 5:44 AM [facility] REPOSITORY [facility] Medical Records Department [address] [place] [address] Discharge Instruction 02/25/18 0153 MR#: [id number] Acct: [id number] Name: TITI ZARATE Rep #: [id number] : 1970 48 From: Myles Ayala MD PCP: Mart Hendrix APRN Status: DEP ER ED Disposition - Plan for ED Patient: Disposition: Home or Assisted Living Chief Complaint: Headache Instructions: ED Headache Tension, ED Near Syncope Unkn Referrals: Mart Hendrix, RN [Primary Care Provider] - What to do if you have Problems For any increased pain, shortness of breath, bleeding, nausea or vomiting, chest pain, or any unexpected problems, contact your Primary Care Provider. Call [facility] ([phone]) or report to the closest Emergency Room. Call 911 if necessary. 02/25/18 0544 <Electronically signed by Myles Ayala MD> Date Myles Ayala MD Cosigner Signature (If Indicated): Date CC: RITO Hendrix EMERGENCY DEPARTMENT Observed: 02/25/2018 Status: F Source: CHAD SUMMARY 5:44 AM [facility] REPOSITORY [facility] Medical Records Department [address] [place] [address] Emergency Department Summary 02/25/18 0038 MR#: [id number] Acct: [id number] Name: TITI ZARATE Rep #: [id number] : 1970 48 From: Myles Ayala MD PCP: Mart Hendrix APRN Status: DEP ER - ER Visit Summary Date of Service: 02/25/18 Chief Complaint: [] Headache for last few days History of Present Illness: The patient is a 48 M stated he has had intermittent headache for last few days as well as muscle aches and nausea. He had a recent cough but that went away. He strained his neck on Saturday and thinks that might be the cause of his headaches. No home treatment. They wax and wane and last for a few hours at a time. Currently he has a headache in the back of his head that is mild to moderate. The reason he came in tonight is because he had a near syncopal episode. He felt lightheaded at work and his body felt tingly. He stated he is been feeling this on and off throughout the day. He felt sweaty and thinks it might of been from getting up too quickly. No chest pain or other symptoms. Denies any other medical problems other than diabetes. No heart problems. Physical Examination: [] Vital signs reviewed General: Well-nourished well-developed Head: Normocephalic atraumatic Eyes: Pupils equal round and reactive to light extraocular movements intact ENT: TMs clear no hemotympanum no trauma Neck: Nontender full range of motion Cardiovascular: Regular rate rhythm no murmurs normal S1-S2 Respiratory: No distress clear to auscultation bilaterally chest nontender Abdomen: Soft nontender nondistended normal bowel sounds no masses Back: Nontender no CVA tenderness Extremities: Nontender active range of motion 4 extremities no trauma Skin: Normal color no trauma Neuro alert oriented cranial nerves II through XII intact normal strength sensation reflexes Test Results: [] Emergency Department Course and Treatment: [] Patient given IV fluids and Toradol. Lab work EKG and CT of his head obtained and CT head showed nothing acute. EKG shows sinus at 82 with no ischemia. CBC is normal except chronically low platelets. 74,000 today. Prior was 83,050 9000. CBC is normal except sodium 135. Glucose is 439. He normally runs high. He has not taken his insulin today. Troponin is negative. Patient was given a liter of fluids. Given IV Toradol and oral Tylenol. At this time he states he still has a headache but does feel better. I feel he can be discharged. He does have this chronic leg pain and numbness. His doctor just started him on gabapentin for possible diabetic neuropathy. He has had a lightheaded near syncopal episode. I do not think he needs admitted for this. I feel he can follow-up as an outpatient and I do not think he has had a subarachnoid hemorrhage. CT shows no mass lesions. Patient will take insulin at home Treatment Plan: [] Disposition: [] Impression: [] Headache with neck strain Near syncopal episode Uncontrolled diabetes Chronic thrombocytopenia This note was generated with [employer] software. It may contain incorrect words, spelling, and punctuation that were not noted in review of the chart prior to signing ED Disposition - Plan for ED Patient: Chief Complaint: Headache Referrals: Mart Hendrix, RN [Primary Care Provider] - What to do if you have Problems For any increased pain, shortness of breath, bleeding, nausea or vomiting, chest pain, or any unexpected problems, contact your Primary Care Provider. Call [facility] ([phone]) or report to the closest Emergency Room. Call 911 if necessary. 02/25/18 0544 <Electronically signed by Myles Ayala MD> Date Myles Ayala MD Cosigner Signature (If Indicated): Date CC: RITO Hendrix CBC-COMPLETE BLOOD CNT Collected: 02/25/2018 Status: F Source: CHAD NO DIFF 12:55 AM [facility] REPOSITORY TYPE CODE TESTS RESULT OUT OF RANGE REFERENCE UNITS LAB L100.1000 4.4-11.0 K/mm3 Normal WBC 4.9 LAB L100.1200 4.6-6.2 M/mm3 Normal RBC 5.37 LAB L100.1300 13.0-16.5 g/dl Normal HGB 15.6 LAB L100.1400 40-54 % Normal HCT 43.0 LAB L100.1500 80-94 fL Normal MCV 80.1 LAB L100.1600 27.0-32.0 pg Normal MCH 29.3 LAB L100.1700 32-36 g/gl High MCHC 36.3 LAB L100.1810 11.6-14.6 % High RDW CV 15.9 LAB L100.1820 35.1-43.9 fl High RDW SD 45.2 LAB L100.1900 150-450 K/mm3 Low PLT 74 LAB L100.2000 6.2-12.0 fl Normal MPV 10.2 Performed By: #### L100.0500 #### [facility] [address] [place], [address] BASIC METABOLIC Collected: 02/25/2018 Status: F Source: [place] PROFILE (BMP) 12:55 AM [facility] REPOSITORY TYPE CODE TESTS RESULT OUT OF RANGE REFERENCE UNITS LAB L501.0100 74-106 mg/dL High GLU 439 Result Comment: Glucose result greater than or equal to 200 mg/dL suggests DIABETES MELLITUS per A.D.A. criteria. Please note revised GLUCOSE reference range effective 2017. LAB L501.1000 7-18 mg/dL Normal BUN 15 LAB L501.1100 0.70-1.30 mg/dL Normal CREAT,SERUM 1.05 Result Comment: The validity of the calculated GFR AND GFRAA in patients over 70 years has not been determined. Clinical correlation is essential. LAB L501.1110 >60 mL/min Normal EST GFR 81 Result Comment: Non- GFR Calc LAB L501.1115 >60 mL/min Normal EST GFR - AA 97 Result Comment: GFR Calc LAB L501.1255 ml/min Normal Estimated CRCL 84.14 LAB L501.1300 10-20 RATIO Normal BUN/CRE 14.3 LAB L501.2200 8.5-10 mg/dL Normal .1 CA 8.7 LAB L501.5300 136-14 mmol/L Low 5 NA 135 LAB L501.5600 3.5-5. mmol/L Normal 1 K 4.0 LAB L501.5900 98-107 mmol/L Normal CL 101 LAB L501.6100 21.0-3 mmol/L Normal 2.0 CO2 25.0 LAB L501.6200 5-15 Normal GAP 9 Performed By: #### L500.2500, L501.4010 #### [facility] [address] [place], [address] TROPONIN-I Collected: 02/25/2018 Status: F Source: [place] 12:55 AM [facility] REPOSITORY TYPE CODE TESTS RESULT OUT OF RANGE REFERENCE UNITS LAB L501.4010 <0.045 ng/mL Normal < 0.015 TROPONIN-I Result Comment: TROPONIN-I EXPECTED VALUES <0.045 Negative 0.045 - 0.590 Consistent with Cardiac Damage > OR = 0.600 Critical Value Not every elevated troponin is indicative of MO. These values should be used with clinical judgement in examining the patient's clinical picture for diagnosis. To establish a diagnosis of MO versus myocardial injury, there must be a demonstrated rise and/or fall in the troponin values, in addition to ischemic symptoms, EKG changes, new regional wall motion abnormality, and/or angiographical evidence. PLEASE NOTE: REFERENCE RANGES EDITED 17 Performed By: #### L500.2500, L501.4010 #### [facility] [address] [place], [address] BRAIN/HEAD WITHOUT Observed: 02/25/2018 Status: F Source: [place] CONTRAST 12:37 AM [facility] REPOSITORY [facility] Imaging Services [address] [place] [address] Brain/Head without Contrast MR#: [id number] Acct: [id number] Name: TITI ZARATE Rep #: [id number] : 1970 M 48 From: Alessio Bridges MD PCP: Mart Hendrix APRN Status: REG ER Study: Brain/Head without Contrast Date of Exam: 02/25/18 Exam# [id number] Ordering Dr: Myles Ayala MD STUDY: CT BRAIN WITHOUT CONTRAST REASON FOR EXAM: Male, 48 years old. Headaches and cough RADIATION DOSAGE (If Supplied By Facility): CTDIvol = ( 44.99 ) mGy, DLP = ( 812.98 ) mGycm TECHNIQUE: Transaxial CT imaging of the brain was performed without administration of intravenous contrast material. Individualized dose optimization techniques were used for this CT. COMPARISON: None. FINDINGS: Normal soft tissue structures. Normal calvarium. Normal size ventricles and extra-axial spaces for the patient's age. Normal white matter tracts of the cerebral hemispheres. Normal basal ganglia and thalami. Normal brainstem. Normal cerebellum. There is no intracranial hemorrhage. There are no findings of an acute ischemic infarction. Normal visualized paranasal sinuses. CT/Brain/Head without Contrast IMPRESSION: Normal unenhanced CT scan of the brain. No acute findings in the brain Electronically Signed: Alessio Bridges MD at 1:28 EDT Tel , Service support , CC: RITO Hendrix; Myles Ayala MD Barmaid: Signed DISCHARGE INSTRUCTION Observed: 01/07/2018 Status: F Source: [place] 5:59 PM [facility] REPOSITORY [facility] Medical Records Department [address] [place] [address] Discharge Instruction 01/07/18 1758 MR#: [id number] Acct: [id number] Name: TITI ZARATE Sandhya Rep #: [id number] : 1970 47 From: Becky Darden MD PCP: Mart Hendrix APRN Status: REG ER ED Disposition - Plan for ED Patient: Chief Complaint: Abd Pain Instructions: ED Abdominal Pain Unkn Cause Referrals: Robles Haas MD [NON-STAFF] - What to do if you have Problems For any increased pain, shortness of breath, bleeding, nausea or vomiting, chest pain, or any unexpected problems, contact your Primary Care Provider. Call [facility] ([phone]) or report to the closest Emergency Room. Call 911 if necessary. 01/07/18 1759 <Electronically signed by Becky Darden MD> Date Becky Darden MD Cosigner Signature (If Indicated): Date CC: RITO Hendrix EMERGENCY DEPARTMENT Observed: 01/07/2018 Status: F Source: [place] SUMMARY 5:58 PM [facility] REPOSITORY [facility] Medical Records Department [address] [place] [address] Emergency Department Summary 01/07/18 1537 MR#: [id number] Acct: [id number] Name: TITI ZARATE Rep #: [id number] : 1970 47 From: Becky Darden MD PCP: Mart Hendrix APRN Status: REG ER - ER Visit Summary Date of Service: 01/07/18 Chief Complaint: Abdominal pain History of Present Illness: The patient is a 47 M presenting with abdominal pain. He states it started on Saturday. He has had nausea, vomiting, diarrhea. He denies blood in his stool or emesis. He went to urgent care today. He states when the nurse practitioner examined him he started to have right-sided abdominal pain. He was sent to the ED for further evaluation. Physical Examination: Vitals are stable. Patient is afebrile. Alert no acute distress. HEENT exam is unremarkable. Neck is supple. Lungs are clear and equal bilaterally. Heart is regular rate and rhythm. Abdomen is soft right upper quadrant and epigastric tenderness with no rebound or guarding Extremities are unremarkable. Skin is warm and dry. No focal neurologic deficit. Remainder of exam is unremarkable. Emergency Department Course and Treatment: Patient given IV fluids, Zofran. CBC shows a platelet count of 83 which is at his baseline. Chemistries show sodium 134, glucose 424, BUN 19. Total bili is 2.9, direct bili 0.56, ALT 70, lipase is normal. Urinalysis shows glucose, no infection. Records were reviewed and his total bili was 3.3 on 05/07/17. He states he has never been told that his bilirubin has been high. He was given insulin subcutaneously and IV fluids. CT abdomen pelvis shows fatty infiltration of the liver, splenomegaly. On reevaluation, patient is resting comfortably. He declines nausea medication for home. He is advised to follow-up with his primary care physician. He is advised return ED for any worsening complaints. Disposition: Discharge home Impression: Vomiting, diarrhea This note was generated with E96 dictation software. It may contain incorrect words, spelling, and punctuation that were not noted in review of the chart prior to signing ED Disposition - Plan for ED Patient: Chief Complaint: Abd Pain Referrals: Robles Haas MD [NON-STAFF] - What to do if you have Problems For any increased pain, shortness of breath, bleeding, nausea or vomiting, chest pain, or any unexpected problems, contact your Primary Care Provider. Call [facility] ([phone]) or report to the closest Emergency Room. Call 911 if necessary. 01/07/18 3666 <Electronically signed by Becky Darden MD> Date Becky Darden MD Cosigner Signature (If Indicated): Date CC: RITO Hendrix BEDSIDE GLUCOSE Collected: 01/07/2018 Status: F Source: [place] 5:49 PM [facility] REPOSITORY TYPE CODE TESTS RESULT OUT OF REFERENCE UNITS RANGE LAB L501.080 70-110 mg/dL High BEDSIDE GLU 302 Result Comment: MANAGEMENT OF PATIENT CARE PER NURSING PROTOCOL Performed By: #### L501.080 #### [facility] Point [facility] [place] [address] ABDOMEN/PELVIS WITH Observed: 01/07/2018 Status: F Source: [place] CONTRAST 3:36 PM [facility] REPOSITORY [facility] Imaging Services [address] [place] [address] Abdomen/Pelvis WITH Contrast MR#: [id number] Acct: [id number] Name: TITI ZARATE Rep #: [id number] : 1970 M 47 From: Kamilah Joaquin MD PCP: Mart Hendrix APRN Status: REG ER Study: Abdomen/Pelvis WITH Contrast Date of Exam: 01/07/18 Exam# [id number] Ordering Dr: Becky Darden MD STUDY: CT ABDOMEN AND PELVIS WITH CONTRAST REASON FOR EXAM: Male, 47 years old. Abdominal pain. Dehydration. RADIATION DOSAGE (If Supplied By Facility): CTDIvol = ( 16.82 ) mGy, DLP = ( 1235.66 ) mGycm TECHNIQUE: Transaxial images were obtained from the dome of the diaphragm to the symphysis pubis without oral contrast. 100 ml of Isovue 300 contrast was administered. Sagittal and coronal images were reconstructed. Individualized dose optimization techniques were used for this CT. COMPARISON: None. FINDINGS: The visualized lung bases are unremarkable. The visualized portions of the heart are within normal limits. There is decreased attenuation of the liver consistent with steatosis. There is non-visualization of the gallbladder, which may be secondary to either contraction or a prior cholecystectomy. There is splenomegaly present. Normal pancreas. Normal bilateral adrenal glands. Normal right kidney. Normal left kidney. Normal visualized stomach. Normal small intestine. Normal colon. The appendix is visualized and appears normal. Normal abdominal aorta. Normal inferior vena cava. Normal retroperitoneum. Normal urinary bladder. There is a small right-sided inguinal hernia containing adipose tissue. There are diffuse degenerative changes of the visualized lumbar spine. There are postsurgical changes of the posterior elements of L2-L5. CT/Abdomen/Pelvis WITH Contrast IMPRESSION: Fatty infiltration of the liver. Splenomegaly. Electronically Signed: Kamilah Joaquin MD at 17:28 EDT Tel , Service support , CC: RITO Hendrix; Becky Darden MD Barmaid: Signed URINALYSIS, COMPLETE Collected: 01/07/2018 Status: F Source: [place] 3:35 PM [facility] REPOSITORY Order Comment: Order Date: 01/07/18 Has pt arrived? Y How was Urine Obtained? CLEAN CATCH TYPE CODE TESTS RESULT OUT OF RANGE REFERENCE UNITS LAB L400.3000 Yellow COLOR Normal Yellow LAB L400.3050 Clear Normal CLARITY Clear LAB L400.3200 Normal mg/dl High GLUCOSE, UR 1000 LAB L400.3300 Negative mg/dL Normal BILIRUBIN URINE Negative LAB L400.3400 Negative mg/dl High 5 KETONE UR LAB L400.3465 1.002-1.030 Normal SP.GR. DIPSTX 1.015 LAB L400.3550 5.0 - 8.0 pH UR Normal 5.0 LAB L400.3600 Negative mg/dl High PROT 30 DIPSTX LAB L400.3700 Normal mg/dl Normal UROBILI Normal LAB L400.3750 Negative Normal NITRITE UR Negative LAB L400.3780 Negative /ul High 10 OCCULT BLOOD-UR LAB L400.3800 Negative /ul LEUK Normal ESTERASE Negative LAB L400.4050 0-5 /hpf WBC 0 Normal SEEN LAB L400.4100 0-5 /hpf Normal RBC-UA 0-5 SEEN LAB L400.4150 0-5 /hpf SQUAM Normal EPI 0-5 SEEN LAB L400.4300 None Seen /hpf 0 Normal BACTERIA SEEN LAB L400.4350 <or=2+ /hpf 0 Normal MUCUS, URINE SEEN Performed By: #### L400.0001 #### [facility] [place], [address] CBC W/DIFF, AUTOMATED Collected: 01/07/2018 Status: F Source: [place] 3:35 PM [facility] REPOSITORY TYPE CODE TESTS RESULT OUT OF RANGE REFERENCE UNITS LAB L100.1000 4.4-11.0 K/mm3 Normal WBC 7.7 LAB L100.1200 4.6-6.2 M/mm3 High RBC 6.24 LAB L100.1300 13.0-16.5 g/dl Normal HGB 16.0 LAB L100.1400 40-54 % Normal HCT 50.3 LAB L100.1500 80-94 fL Normal MCV 80.6 LAB L100.1600 27.0-32.0 pg Low MCH 25.6 LAB L100.1700 32-36 g/gl Low MCHC 31.8 LAB L100.1810 11.6-14.6 % High RDW CV 15.5 LAB L100.1820 35.1-43.9 fl High RDW SD 44.1 LAB L100.1900 150-450 K/mm3 Low PLT 83 LAB L100.2000 6.2-12.0 fl Normal MPV 10.2 LAB L100.2100 47-70 % High NEUT% 73.0 LAB L100.2200 19-41 % Normal LY% 19.5 LAB L100.2300 0-10 % Normal MONO% 6.7 LAB L100.2400 0-5 % Normal EO% 0.4 LAB L100.2500 0-1 % Normal BASO% 0.4 LAB L100.2550 0.0-0.9 % Normal IM GRAN % 0.500 Result Comment: IG% - Immature Granulocytes (promyelocytes, myelocytes and metamyelocytes) > 1% indicates that a LEFT SHIFT is Present. LAB L100.2620 2.0-7.7 X10 3/uL Normal Absolute Neut 5.5 LAB L100.2720 0.83-4.51 X10 3/ul Normal Absolute Lymph 1.50 Performed By: #### L100.0100 #### [facility] [address] [facility] [place], [place], [address] BASIC METABOLIC Collected: 01/07/2018 Status: F Source: [place] PROFILE ([facility]) 3:35 PM [facility] REPOSITORY TYPE CODE TESTS RESULT OUT OF RANGE REFERENCE UNITS LAB L501.0100 74-106 mg/dL High GLU 424 Result Comment: Glucose result greater than or equal to 200 mg/dL suggests DIABETES MELLITUS per A.D.A. criteria. Please note revised GLUCOSE reference range effective 2017. LAB L501.1000 7-18 mg/dL High BUN 19 LAB L501.1100 0.70-1.30 mg/dL Normal CREAT,SERUM 1.17 Result Comment: The validity of the calculated GFR AND GFRAA in patients over 70 years has not been determined. Clinical correlation is essential. LAB L501.1110 >60 mL/min Normal EST GFR 71 Result Comment: Non- GFR Calc LAB L501.1115 >60 mL/min Normal EST GFR - AA 86 Result Comment: GFR Calc LAB L501.1255 ml/min Normal Estimated CRCL 73.76 LAB L501.1300 10-20 RATIO Normal BUN/CRE 16.2 LAB L501.2200 8.5-10 mg/dL Normal .1 CA 9.2 LAB L501.5300 136-14 mmol/L Low 5 NA 134 LAB L501.5600 3.5-5. mmol/L Normal 1 K 4.0 LAB L501.5900 98-107 mmol/L Low CL 97 LAB L501.6100 21.0-3 mmol/L Normal 2.0 CO2 29.0 LAB L501.6200 5-15 Normal GAP 8 Performed By: #### L500.2500, L500.3400, L501.2450 #### [facility] [address] [place], [place], [address] LIVER PROFILE Collected: 01/07/2018 Status: F Source: [place] 3:35 PM [facility] REPOSITORY TYPE CODE TESTS RESULT OUT OF RANGE REFERENCE UNITS LAB L501.1500 6.4-8.2 g/dL Normal T PROT 8.1 LAB L501.1800 3.2-5.0 g/dL Normal ALB 4.4 LAB L501.1950 2.2-4.2 g/dL Normal GLOB 3.7 LAB L501.4100 15-37 U/L Normal AST 26 LAB L501.4305 45-117 U/L Normal ALK P 100 LAB L501.4405 16-61 U/L High ALT 70 LAB L501.4600 0.20-1.00 mg/dL High T BILI 2.90 LAB L501.4700 0.00-0.30 mg/dL High D BILI 0.56 Performed By: #### L500.2500, L500.3400, L501.2450 #### [facility] [address] [place], [address] LIPASE Collected: 01/07/2018 Status: F Source: [place] 3:35 PM [facility] REPOSITORY TYPE CODE TESTS RESULT OUT OF RANGE REFERENCE UNITS LAB L501.2450 73-393 U/L Normal LIPASE 256 Performed By: #### L500.2500, L500.3400, L501.2450 #### [facility] [address] [place], [address] PROGRESS Observed: 01/07/2018 Status: COMPLETED Source: [place] 1:51 PM [facility] [place] REPOSITORY HNO ID: [id number] Author: Lorie (Micah) Rae Service: (none) Author Type: Nurse Practitioner Type: Progress Notes Filed: 01/07/2018 2:21 PM Note Text: Subjective The history is provided by the patient. No bilingual speech language pathologist was used. HPI Titi Zarate is a 47 year old male who presents today for CC of vomiting and diarrhea. This started late Saturday evening, had x 1 vomiting episode, and then 4 episodes of vomiting on Saturday and 3 today. He had same episodes of diarrhea on Saturday and Saturday, none today. He is also having mild abdominal cramping, fatigue, denies fever and has urinated 4 times in 8 hours today yellow in color. Symptoms are worsened by nothing He has tried peptobismal without relief. 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 BP 96/72 (BP Site: Left Arm, BP Position: Sitting, BP Cuff Size: Large Adult) Pulse 92 Temp 36.5 ?C (97.7 ?F) (Temporal Artery) Resp 16 Wt 87.8 kg (193 lb 9.6 oz) SpO2 98% BMI 29.68 kg/m? 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) Hyperbilirubinemia Family History of Colon Cancer Benign Colonic Polyp Diabetic Nephropathy (Hcc) Daytime Somnolence Thrombocytopenia (Hcc) Fatty Metamorphosis of Liver Family History Problem Relation Age of Onset - Cancer Paternal Grandfather prostate - Cancer Maternal Grandfather - Hypertension Maternal Aunt - Diabetes Mother - Diabetes Maternal Aunt - Colon Cancer Mother at age 61 Social History Marital status: Single Spouse name: Years of education: Number of children: 2 Occupational History Occupation Employer Comment [employer] Social History Main Topics Smoking status: Never Smoker Smokeless tobacco: Never Used Alcohol use: Yes Comment: beer Drug use: No Sexual activity: Not Currently PAST MEDICAL HISTORY Diagnosis Date - Abdominal tenderness, left upper quadrant - Anxiety - Depression - Diabetes mellitus type II 2010 - Diabetic nephropathy (HCC) - Hypercholesteremia - Hypertension Review of Systems Constitutional: Negative for chills, fever and malaise/fatigue. Gastrointestinal: Positive for abdominal pain, diarrhea, nausea and vomiting. Genitourinary: Negative for dysuria, flank pain, frequency, hematuria and urgency. Skin: Negative for rash. Neurological: Negative for headaches. Objective Physical Exam Constitutional: He is oriented to person, place, and time and well-developed, well-nourished, and in no distress. HENT: Head: Normocephalic and atraumatic. Eyes: Pupils are equal, round, and reactive to light. Conjunctivae and EOM are normal. Neck: Normal range of motion. Neck supple. Pulmonary/Chest: Effort normal. Abdominal: Soft. Normal appearance and bowel sounds are normal. He exhibits no abdominal bruit, no pulsatile midline mass and no mass. There is no hepatosplenomegaly. There is tenderness in the right lower quadrant. There is tenderness at McBurney's point. There is no rigidity, no rebound, no guarding and no CVA tenderness. Neurological: He is alert and oriented to person, place, and time. Skin: Skin is warm. Psychiatric: Affect normal. Nursing note and vitals reviewed. ASSESSMENT/PLAN: 1. Right lower quadrant abdominal pain - ICD9: 789.03, ICD10: R10.31 (primary diagnosis) Due to nature of patient's complaint and lack of investigative tools available at [facility], recommend patient be seen at nearest ED for further work up of abdominal pain.. Patient given directions to [facility], girl friend waiting in care will transport. ER card and report called to [facility]. 2. Vomiting and diarrhea - ICD9: 787.03, 787.91, ICD10: R11.10, R19.7 Diagnosis and treatment plan were discussed and questions were answered to the patient's satisfaction. Pt acknowledged understanding of concepts and follow up plan. Specific signs and symptoms that would indicate the need for higher level of care were discussed in detail warranting prompt ER evaluation. Lorie Mcbride APRN.CNP CNOV Observed: 01/07/2018 Status: COMPLETED Source: [place] 1:45 PM [facility] REPOSITORY Office Visit (WSTR) TIIT ZARATE ([id number]) 1970 M Date Time Provider Department 01/07/18 1:45 PM LORIE MCBRIDE (MICAH) WSTR During your visit today, we recorded the following information about you: Temperature Pulse Respiration Blood pressure 97.7 degrees 92/minute 16/minute 96/72 Weight 87.8 kg Lorie Mcbride APRN.CNP 01/07/2018 2:21 PM Signed Subjective The history is provided by the patient. No bilingual speech language pathologist was used. HPI Titi Zarate is a 47 year old male who presents today for CC of vomiting and diarrhea. This started late Saturday evening, had x 1 vomiting episode, and then 4 episodes of vomiting on Saturday and 3 today. He had same episodes of diarrhea on Saturday and Saturday, none today. He is also having mild abdominal cramping, fatigue, denies fever and has urinated 4 times in 8 hours today yellow in color. Symptoms are worsened by nothing He has tried peptobismal without relief. 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 BP 96/72 (BP Site: Left Arm, BP Position: Sitting, BP Cuff Size: Large Adult) Pulse 92 Temp 36.5 ?C (97.7 ?F) (Temporal Artery) Resp 16 Wt 87.8 kg (193 lb 9.6 oz) SpO2 98% BMI 29.68 kg/m? 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) Hyperbilirubinemia Family History of Colon Cancer Benign Colonic Polyp Diabetic Nephropathy (Hcc) Daytime Somnolence Thrombocytopenia (Hcc) Fatty Metamorphosis of Liver Family History Problem Relation Age of Onset - Cancer Paternal Grandfather prostate - Cancer Maternal Grandfather - Hypertension Maternal Aunt - Diabetes Mother - Diabetes Maternal Aunt - Colon Cancer Mother at age 61 Social History Marital status: Single Spouse name: Years of education: Number of children: 2 Occupational History Occupation Employer Comment [employer] Social History Main Topics Smoking status: Never Smoker Smokeless tobacco: Never Used Alcohol use: Yes Comment: beer Drug use: No Sexual activity: Not Currently PAST MEDICAL HISTORY Diagnosis Date - Abdominal tenderness, left upper quadrant - Anxiety - Depression - Diabetes mellitus type II 2010 - Diabetic nephropathy (HCC) - Hypercholesteremia - Hypertension Review of Systems Constitutional: Negative for chills, fever and malaise/fatigue. Gastrointestinal: Positive for abdominal pain, diarrhea, nausea and vomiting. Genitourinary: Negative for dysuria, flank pain, frequency, hematuria and urgency. Skin: Negative for rash. Neurological: Negative for headaches. Objective Physical Exam Constitutional: He is oriented to person, place, and time and well-developed, well-nourished, and in no distress. HENT: Head: Normocephalic and atraumatic. Eyes: Pupils are equal, round, and reactive to light. Conjunctivae and EOM are normal. Neck: Normal range of motion. Neck supple. Pulmonary/Chest: Effort normal. Abdominal: Soft. Normal appearance and bowel sounds are normal. He exhibits no abdominal bruit, no pulsatile midline mass and no mass. There is no hepatosplenomegaly. There is tenderness in the right lower quadrant. There is tenderness at McBurney's point. There is no rigidity, no rebound, no guarding and no CVA tenderness. Neurological: He is alert and oriented to person, place, and time. Skin: Skin is warm. Psychiatric: Affect normal. Nursing note and vitals reviewed. ASSESSMENT/PLAN: 1. Right lower quadrant abdominal pain - ICD9: 789.03, ICD10: R10.31 (primary diagnosis) Due to nature of patient's complaint and lack of investigative tools available at [facility], recommend patient be seen at nearest ED for further work up of abdominal pain.. Patient given directions to [facility], girl friend waiting in care will transport. ER card and report called to [facility]. 2. Vomiting and diarrhea - ICD9: 787.03, 787.91, ICD10: R11.10, R19.7 Diagnosis and treatment plan were discussed and questions were answered to the patient's satisfaction. Pt acknowledged understanding of concepts and follow up plan. Specific signs and symptoms that would indicate the need for higher level of care were discussed in detail warranting prompt ER evaluation. Lorie Mcbride APRN.CONFERENCE RESERVATIONIST Referring Provider: SELF [200] Allergies As of Date: 01/07/2018 Noted Allergy Reaction BACTRIM (SULFAMETHOXAZOLE) 01/28/2013 2 - Rash GENTAMYCIN (GENTAMICIN) 09/24/2013 14 - Other: See Comments Comments: Eye irritation Date Reviewed: 01/07/2018 Reviewed by: Carol Galicia Ma - Fully Assessed Reason for Visit: Vomiting [120] Cmt: with diarrhea, dizziness AND fatigue Primary Visit Diagnosis:Right lower quadrant abdominal pain [R10.31] Other Visit Diagnosis:Vomiting and diarrhea [R11.10, R19.7] Prescriptions as of 01/07/2018 Sig: INSULIN NPH-REGULAR 70-30 U-1* Inject 80 Units subcutaneousl* METFORMIN ER 500 MG TABLET,EX* Take 2 tablets by mouth daily* INSULIN LISPRO (U-100) 100 UN* Inject 44 units breakfast, 48* BLOOD SUGAR DIAGNOSTIC STRIPS Test blood sugar(s) 2 times d* LANCETS Test blood sugar four (4) basil* COMPOUNDED PRESCRIPTION Diabetic Shoes Dx: E11.4;E11* LISINOPRIL 10 MG TABLET Take 1 tablet by mouth once d* PEN NEEDLE, DIABETIC 31 GAUGE* Use one for each dose, 7 per * BLOOD-GLUCOSE METER KIT Daily glucose check. Dx 250.* MECLIZINE 25 MG TABLET Take 25 mg by mouth three basil* BUDESONIDE 180 MCG/ACTUATION * Inhale 2 Puffs as instructed * DOXYCYCLINE MONOHYDRATE 100 M* Take 1 tablet by mouth twice * ALBUTEROL SULFATE HFA 90 MCG/* Inhale 2 Puffs as instructed * CITALOPRAM 20 MG TABLET Take 1 tablet by mouth once d* ATORVASTATIN 20 MG TABLET Take 1 tablet by mouth daily * Problem List As Of Date 01/07/2018 Noted Resolved Uncontrolled type II diabetes mellitus with nep*INVALID FOR* More... Hyperbilirubinemia [E80.6] INVALID FOR* More... Family history of colon cancer [Z80.0] INVALID FOR* Benign colonic polyp [K63.5] INVALID FOR* Diabetic nephropathy [E11.21] INVALID FOR* Daytime somnolence [R40.0] INVALID FOR* Thrombocytopenia (HCC) [D69.6] INVALID FOR* Fatty metamorphosis of liver [K76.0] INVALID FOR* Letter Text Titi Zarate Lorie Mcbride APRN.CONFERENCE RESERVATIONIST Urgent Care [address] [facility] [address] Dept: [phone] Date this form was last completed: January 07, 2018 Reason for Emergency Transport: Abdominal pain, possible dehydration Name: Titi Zarate [facility] Number : [id number] Age: [age] year old : 1970 Address: [facility] [address] [id number] (home) Primary care physician: IRASEMA Nicole FNP [address] [place] [address] Current Vital Signs: BP 96/72 (BP Site: Left Arm, BP Position: Sitting, BP Cuff Size: Large Adult) Pulse 92 Temp 36.5 ?C (97.7 ?F) (Temporal Artery) Resp 16 Wt 87.8 kg (193 lb 9.6 oz) SpO2 98% BMI 29.68 kg/m? Allergies: Bactrim [Sulfamethoxazole]; Gentamycin [Gentamicin] Current Medications: Current Outpatient Prescriptions: insulin 70/30 NPH/regular units/mL (HUMULIN 70/30 U-100 KWIKPEN) 100 unit/mL (70-30) inpn Inject 80 Units subcutaneously twice daily with meals. metFORMIN ER (GLUCOPHAGE XR) 500 mg 24 hr tablet Take 2 tablets by mouth daily with lunch. insulin lispro (HUMALOG KWIKPEN) 100 unit/mL inpn Inject 44 units breakfast, 48 units lunch, 42 units with dinner. blood sugar diagnostic (BLOOD GLUCOSE TEST) test strip Test blood sugar(s) 2 times daily. Dx: 250.02. Insulin: Yes Lancets (ACCU-CHEK MULTICLIX LANCET) lancets Test blood sugar four (4) times daily and as needed. DX 250.02, Insulin-Yes COMPOUNDED PRESCRIPTION Diabetic ShoesDx: E11.4;E11.21 lisinopril (ZESTRIL, PRINIVIL) 10 mg tablet Take 1 tablet by mouth once daily. insulin needles, DISPOSABLE, (BD INSULIN PEN NEEDLE UF) 31 X 5/16 ndle Use one for each dose, 7 per day/. Dx: 250.02. Insulin: yes. Blood-Glucose Meter monitoring kit Daily glucose check. Dx 250.00 meclizine (ANTIVERT) 25 mg tab Take 25 mg by mouth three times daily. budesonide (PULMICORT FLEXHALER) 180 mcg/actuation aepb Inhale 2 Puffs as instructed twice daily. doxycycline monohydrate 100 mg tablet Take 1 tablet by mouth twice daily. albuterol HFA (PROAIR HFA) 90 mcg/actuation inhaler Inhale 2 Puffs as instructed every 4 hours as needed. citalopram (CELEXA) 20 mg tablet Take 1 tablet by mouth once daily. atorvastatin (LIPITOR) 20 mg tablet Take 1 tablet by mouth daily at bedtime. No current facility-administered medications for this visit. 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) Hyperbilirubinemia Family History of Colon Cancer Benign Colonic Polyp Diabetic Nephropathy (Hcc) Daytime Somnolence Thrombocytopenia (Hcc) Fatty Metamorphosis of Liver Past Surgical History PAST SURGICAL HISTORY Procedure Laterality Date - COLONOSCOP W/ OR W/O [facility] SPE[facility] 09-13-11 Repeat in 3 years (-2014) - LAP CHOLECYSTECT/CHOLANGIOGRAPHY 07/09/08 - PAST SURGICAL HISTORY OF right knee - PAST SURGICAL HISTORY OF right shoulder blade - REPAIR ING HERNIA,5+Y/O,REDUCIBL Hernia repair, inguinal Insurance information: Payor: [facility] / Plan: [facility] CHO[facility] / Product Type: HMO / Emergency Contact: Extended Emergency Contact Information Primary Emergency Contact: SonuNadja Mobile Relation: Significant other Encounter Status:Closed by LORIE MCBRIDE CNP on 01/07/18 MAGNESIUM Collected: 01/06/2018 Status: F Source: [place] 11:50 AM [facility] REPOSITORY TYPE CODE TESTS RESULT OUT OF REFERENCE UNITS RANGE LAB MAGNESIUM( 1.6 - 2.6 mg/dl LOINC) MAGNESIUM 2.2 Performed By: #### [id number] #### [facility],[address] [place] [address] CMP WITH EGFR Collected: 01/06/2018 Status: F [facility] AM [facility] REPOSITORY TYPE CODE TESTS RESULT OUT OF RANGE REFERENCE UNITS LAB CMP with eGFR(LOINC) CMP with eGFR Result Comment: COMPREHENSIVE METABOLIC PANEL LAB SODIUM(LOINC) 136 - 145 mmol/l SODIUM Low 134 LAB POTASSIUM(LOINC) 3.5 - 5.1 mmol/L POTASSIUM 4.1 LAB CHLORIDE(LOINC) 98 - 107 mmol/L CHLORIDE 102 LAB CO2(LOINC) 21.0 - mmol/L 31.0 CO2 Low 20.8 LAB GLUCOSE(LOINC) 74 - 106 mg/dl GLUCOSE High 353 LAB BUN(LOINC) 6 - 20 mg/dl BUN 12 LAB CREATININE(LOINC) 0.7 - 1.3 mg/dl CREATININE 0.8 LAB AST/SGOT(LOINC) 13 - 39 U/L AST/SGOT 30 LAB ALK PHOS(LOINC) 38 - 126 U/L ALK PHOS 89 LAB CALCIUM(LOINC) 8.6 - mg/dl 10.2 CALCIUM 9.2 LAB TOTAL 6.4 - 8.3 g/dl PROTEIN(LOINC) TOTAL PROTEIN 7.2 LAB ALBUMIN(LOINC) 3.4 - 4.8 g/dL ALBUMIN 4.8 LAB GLOBULIN(LOINC) 1.5 - 3.8 G/DL GLOBULIN 2.4 LAB A/G RATIO(LOINC) 0.9 - 1.6 A/G High RATIO 2.0 LAB TOTAL BILI(LOINC) 0.0 - 1.5 mg/dl TOTAL High BILI 2.8 LAB B/C RATIO(LOINC) 0 - 30 ratio B/C RATIO 15 LAB ALT/SGPT(LOINC) 10 - 40 U/L ALT/SGPT High 55 LAB ANION GAP(LOINC) 10 - 20 mmol/L ANION GAP 15 LAB AGE(LOINC) years AGE 47 LAB eGFR(LOINC) 60 - 999 ML/MINUTE eGFR >60 LAB eGFR(AA)(LOINC) 60 - 999 ML/MINUTE eGFR(AA) >60 Result Comment: ACCORDING TO THE NATIONAL KIDNEY DISEASE EDUCATION PROGRAM(NKDE), A NORMAL eGFR IS A VALUE GREATER THAN OR EQUAL TO 60 ML/MIN/1.73 SQ METERS. CHRONIC KIDNEY DISEASE: <60mL/MIN/1.73 SQ METERS KIDNEY FAILURE: <15mL/MIN/1.73 SQ METERS THIS TEST SHOULD ONLY BE USED FOR PATIENTS 18 YEARS OF AGE AND OLDER. Performed By: #### [id number] #### [address] [address] VITAMIN B-12 Collected: 01/06/2018 Status: F Source: [facility] 11:50 [facility] REPOSITORY TYPE CODE TESTS RESULT OUT OF REFERENCE UNITS RANGE LAB N(LOINC) 180 - 914 pg/mL VITAMIN B12 643 Performed By: #### [id number] #### [address] [address] FOLATES Collected: 01/06/2018 Status: F Source: [facility] 11:50 [facility] REPOSITORY TYPE CODE TESTS RESULT OUT OF REFERENCE UNITS RANGE LAB FOLATES(ADELAIDA 3.5 - 20.0 ng/ml NC) FOLATES 17.8 Performed By: #### [id number] #### [address] [address] LIPID PROFILE Collected: 01/06/2018 Status: F Source: [facility] 11:50 [facility] REPOSITORY TYPE CODE TESTS RESULT OUT OF REFERENCE UNITS RANGE LAB LIPID PROFILE(LOIN C) LIPID PROFILE Result Comment: LIPID PROFILE LAB TRIGLYCERIDE(LOINC) 0 - 150 mg/dl TRIGLYCERIDE 150 LAB CHOLESTEROL(LOINC) 0 - 200 mg/dl CHOLESTEROL 101 LAB HDL(LOINC) 40 - 60 mg/dl HDL Low 37 LAB CHOL/HDL(LOINC) 0.0 - 5.0 CHOL/HDL 2.7 LAB LDL(LOINC) 0 - 129 mg/dl LDL 34 Performed By: #### [id number] #### [address] [address] VITAMIN D, 25 Collected: 01/06/2018 Status: F Source: [facility] 11:50 [facility] REPOSITORY TYPE CODE TESTS RESULT OUT OF RANGE REFERENCE UNITS LAB VitD(LOINC) 30.00 - 100 ng/mL Low VitD 29.90 Result Comment: 25-OHD3 indicates both endogenous production and supplementation. 25-OHD2 is an indicator of exogenous sources, such as diet or supplementation. Therapy is based on measurement of Total 25-OHD, with levels <20 ng/mL indicative of Vitamin D deficiency, while levels between 20 ng/mL and 30 ng/mL suggest insufficiency. Optimal levels are >=30ng/mL. Vitamin D, 25-OH D3 Not Established Vitamin D, 25-OH D2 Not Established Performed By: #### [id number] #### [facility],[address] [place], [place] [id number] VITAMIN B6 [QUEST] Collected: 01/06/2018 Status: F Source: [facility] 11:50 AM [facility] REPOSITORY TYPE CODE TESTS RESULT OUT OF REFERENCE UNITS RANGE LAB VITAMIN B6 [QUEST](LOINC ) VITAMIN B6 [QUEST] Result Comment: _VITAMIN B-6_ VITAMIN B6, PLASMA Reported: 01/09/2018 13:43 Status=F TEST RESULT FLAG RANGE UNITS VITAMIN B6, PLASMA 15.4 2.1-21.7 ng/mL 01/09/[id number].AMRR Vitamin supplementation within 24 hours prior to blood draw may affect the accuracy of the results. This test was developed and its analytical performance characteristics have been determined by [employer] [place], [place]. It has not been cleared or approved by the U.S. Food and Drug Administration. This assay has been validated pursuant to the CLIA regulations and is used for clinical purposes. Test Performed by Jair Gonsalezy, [facility] [place], [address] [place] [address] Jase Schwartz M.D., Ph.D., Director of Laboratories , [place] [id number] Performed By: #### [id number] #### [facility],[address] [place] [id number] CNCO Observed: 11/26/2017 Status: COMPLETED Source: [place] 12:00 AM [facility] REPOSITORY Letter Text Titi Zarate Sheldon Carroll MD [address] [facility], [address] [place] [address] November 26, 2017 Titi Zarate 137 1/2 [facility] [address] [facility] [address] Dear Mr. Zarate, Please contact this office in reference to your missed appointment on 11/26/17. Please call us at [phone] to reschedule. We look forward to hearing from you in the near future. Sincerely , Sheldon Carroll MD (Electronically signed to expedite mailing) EMERGENCY DEPARTMENT Observed: 10/11/2017 Status: F Source: [facility] SUMMARY 9:58 AM [facility] EMERGENCY DEPARTMENT SUMMARY NAME NUMBER SEX AGE ADMIT DISC TYPE MED.RECORD# TESSA Arthur [id number] M [id number] 06/24/17 06/25/17 E.R. [id number] ROOM:[facility] DATE OF :1970 PHYSICIAN NO.:[id number] PHYSICIAN NAME:E-SIGN CAYETANO STALLWORTH DO PHYSICIAN:WALDO MARIE MD ADDENDUM EMERGENCY DEPARTMENT COURSE AND TREATMENT: This is a 47-year-old male who presented for hyperglycemia. At this time, the patient has currently been discharged home. I did have a long discussion with one of his associated primary care doctors, Dr. Micheal Dukes. She has assured me that the patient does have his insulin medications prescribed and are currently waiting for him at [facility]. The patient is supposed to take 47 units of Levemir twice daily with associated Lispro 44 units at breakfast, 48 units at lunch, and 42 units at dinner. In addition, she has informed me that the patient does have an appointment with the pharmacist on-site at [facility] on July 22, 2017, to continue to go over his medications and the importance of taking his medications. In addition, the patient has an appointment with Endocrinology on July 29, 2017. All of this has been explained to the patient. I have explained to the patient that it is imperative that he continue to watch the amount of sugar he is taking and that he needs to take his medications, as worsening renal injury and overall decline in health will occur if the patient does not better manage his diabetes. The patient at this time is alert, oriented, and nontoxic-appearing. His blood sugar has come down significantly. It is below 300 at this time. The patient has been instructed to go directly to [facility] to obtain his medications. The patient has no further questions and has since been discharged home. DIAGNOSES: 1. Hyperglycemia. 2. Uncontrolled diabetes. D: China Moore DO TD: 09:47 JOB #: [id number] Electronically signed by: CHINA MOORE DO 10/11/17 09:56 Transcribed by: elmira 06/26/2017 10:07 EMERGENCY REPORT Observed: 10/03/2017 Status: F Source: [facility] 8:36 AM [facility] EMERGENCY ROOM REPORT NAME ACCOUNT SEX AGE ADMIT DISCHARGE PT MED. RECORD# NUMBER DATE DATE TYPE TITI ZARATE [id number] Siri 47 09/24/17 09/24/17 3 C [id number] ROOM: ER DATE OF : 1970 DICTATING PHYSICIAN: Raj Barnes CHIEF COMPLAINT: Headache HISTORY OF PRESENT ILLNESS: The patient has known migraines occasionally. He states that he had a headache that started last night at about 1:00, and it has gotten gradually worse. He has nausea and vomiting with it. It seems to be diffuse, not just localized to one side. He has no fever or chills. He has some nausea, but no vomiting. He does have photosensitivity with this. PAST MEDICAL HISTORY: Migraines, as mentioned, but no other significant medical problems. The patient states that he is diabetic, though he has not checked his sugar for quite some time. PAST SURGICAL HISTORY: He has had previous orthopedic surgeries and hernia surgery. MEDICATIONS: He takes no medications regularly. ALLERGIES: Bactrim FAMILY HISTORY: SOCIAL HISTORY: He lives at home. He does not smoke. He drinks alcohol rarely. He is accompanied here with family members. PHYSICAL EXAMINATION: This is a 47-year-old male who is alert, appropriate and appears uncomfortable but not toxic. He responds appropriately to questions and commands. Skin is pink, warm and dry. Pupils are equal, round and reactive to light. Extraocular muscles are intact. TMs, nose, mouth and throat are all within normal limits. Funduscopic exam is unremarkable. Cranial nerves are intact. Neck is supple, no adenopathy, no bruits. He has some mild tenderness diffusely to the posterior cervical musculature. Normal range of motion to the neck. He moves extremities appropriately without any focal weaknesses. Good peripheral pulses. No clubbing, cyanosis or edema. VITAL SIGNS: Temperature 97.9, pulse 81, respirations 14, blood pressure 128/95. EMERGENCY DEPARTMENT COURSE AND TREATMENT: His O2 saturation is Page 1 of 2 TITI ZARATE Emergency Room Report 97%. The patient had an IV placed. He was given a liter of IV fluids. He initially was given Compazine, Benadryl, and Toradol with some mild improvement. Later a dose of morphine and Solu-Medrol were given which helped noticeably. We did check a bedside glucose and it was 260. The patient was discharged to home with a prescription for a 2-day course of prednisone and he was given a short number of [place] to take for pain. His OARRS report was pulled and was negative. DIAGNOSIS: Migraine headache. PLAN/DISPOSITION: The patient was discharged to follow up with his family doctor in 1-2 days if no better. Return if symptoms worsen. Dictated By: Raj Barnes MD 09/27/17 08:11 JOB #: [id number] Transcribed By: [email or web address] 09/28/17 08:00 Electronically signed by: ANGEL Barnes M.D. 10/03/17 08:35 Page 2 of 2 TITI ZARATE Emergency Room Report CNPTOUTREACH Observed: 09/17/2017 Status: COMPLETED Source: [place] 12:00 AM [facility] REPOSITORY [facility] TITI ZARATE ([id number]) 1970 M Date Time Provider Department 09/17/17 FRANKY ORTIZ During your visit today, we recorded the following information about you: Allergies As of Date: 09/17/2017 Noted Allergy Reaction BACTRIM (SULFAMETHOXAZOLE) 01/28/2013 2 - Rash GENTAMYCIN (GENTAMICIN) 09/24/2013 14 - Other: See Comments Comments: Eye irritation Date Reviewed: 07/30/2017 Reviewed by: Lorie Cox - Fully Assessed Visit Diagnosis:Medication management [Z79.899] Order(s):ALBUMIN/CREAT RATIO RND UR [SQUACR] Order #: [id number] FUTURE LIPID PANEL BASIC [SQLIPB] Order #: [id number] FUTURE Prescriptions as of 09/17/2017 Sig: INSULIN NPH-REGULAR 70-30 U-1* Inject 80 Units subcutaneousl* METFORMIN ER 500 MG TABLET,EX* Take 2 tablets by mouth daily* INSULIN LISPRO (U-100) 100 UN* Inject 44 units breakfast, 48* MECLIZINE 25 MG TABLET Take 25 mg by mouth three basil* BLOOD SUGAR DIAGNOSTIC STRIPS Test blood sugar(s) 2 times d* LANCETS Test blood sugar four (4) basil* BUDESONIDE 180 MCG/ACTUATION * Inhale 2 Puffs as instructed * DOXYCYCLINE MONOHYDRATE 100 M* Take 1 tablet by mouth twice * ALBUTEROL SULFATE HFA 90 MCG/* Inhale 2 Puffs as instructed * COMPOUNDED PRESCRIPTION Diabetic Shoes Dx: E11.4;E11* CITALOPRAM 20 MG TABLET Take 1 tablet by mouth once d* ATORVASTATIN 20 MG TABLET Take 1 tablet by mouth daily * LISINOPRIL 10 MG TABLET Take 1 tablet by mouth once d* PEN NEEDLE, DIABETIC 31 GAUGE* Use one for each dose, 7 per * BLOOD-GLUCOSE METER KIT Daily glucose check. Dx 250.* Problem List As Of Date 09/17/2017 Noted Resolved Uncontrolled type II diabetes mellitus with nep*INVALID FOR* More... Hyperbilirubinemia [E80.6] INVALID FOR* More... Family history of colon cancer [Z80.0] INVALID FOR* Benign colonic polyp [K63.5] INVALID FOR* Diabetic nephropathy [E11.21] INVALID FOR* Daytime somnolence [R40.0] INVALID FOR* Thrombocytopenia (HCC) [D69.6] INVALID FOR* Fatty metamorphosis of liver [K76.0] INVALID FOR* Encounter Status:Closed by NOAH BROUSSARDR on 02/28/18 PROGRESS Observed: 07/30/2017 Status: COMPLETED Source: [place] 1:04 PM [facility] REPOSITORY HNO ID: [id number] Author: Sheldon Carroll Service: (none) Author Type: Physician Type: Progress Notes Filed: 08/28/2017 7:56 PM Note Text: Reason for Consultation: DM Type 2 Referring Physician: Nikko Dukes, SHANELLE [address] [facility] [address] My final recommendations will be communicated back to the requesting physician by way of shared Medical record or letter via US mail. HISTORY OF PRESENT ILLNESS; Mr. Zarate is a 47 year old male presenting as a new patient to me regarding DM Type 2. He was initially diagnosed with diabetes in his 20s. He does have a family history of diabetes mellitus in his Mother and maternal aunts. The patient reports the following microvascular complications: nephropathy and peripheral neuropathy. Titi has no know macrovascular complications of diabetes. He has been on insulin since late 20s. His current diabetes regimen is Levemir 47 units BID, Humalog 44-48-42. Regarding symptoms of hyperglycemia, he is is experiencing polyuria and polydipsia. Dietary History is as follows: none Exercise: none Titi is checking his blood glucose 3-4 times daily. He did not bring a logbook today for review: ? Fastin-250 mg/dL ? Prelunch: 280-300 mg/dL ? Predinner: 200-230 mg/dL ? 2 hr post dinner: 280-300 mg/dL Hypoglycemia frequency: lowest ever was 80 Hypoglycemia awareness: Yes The patient comes into the office today with complaints of uncontrolled DM. Last eye exam: November 2016: no retinopathy Vacc: up to date Last feet exam: 4 yrs ago Diabetic education: never PAST MEDICAL HISTORY Diagnosis Date - Abdominal tenderness, left upper quadrant - Anxiety - Depression - Diabetes mellitus type II 2010 - Diabetic nephropathy (HCC) - Hypercholesteremia - Hypertension PAST SURGICAL HISTORY Procedure Laterality Date - COLONOSCOP W/ OR W/O [facility] SPEC 4-26-12 Repeat in 3 years (-2014) - LAP CHOLECYSTECT/CHOLANGIOGRAPHY 07/09/08 - PAST SURGICAL HISTORY OF right knee - PAST SURGICAL HISTORY OF right shoulder blade - REPAIR ING HERNIA,5+Y/O,REDUCIBL Hernia repair, inguinal FAMILY HISTORY Problem Relation Age of Onset - Cancer Paternal Grandfather prostate - Cancer Maternal Grandfather - Hypertension Maternal Aunt - Diabetes Mother - Diabetes Maternal Aunt - Colon Cancer Mother at age 61 Social History Marital status: Single Spouse name: Years of education: Number of children: 2 Occupational History Occupation Employer Comment [employer] Social History Main Topics Smoking status: Never Smoker Smokeless status: Never Used Alcohol use: Yes Comment: beer Drug use: No Sexual activity: Not Currently Current Outpatient Prescriptions: insulin detemir (LEVEMIR FLEXTOUCH) 100 unit/mL (3 mL) inpn injection Inject 47 Units subcutaneously twice daily. Disp: 10 Pen Rfl: 5 insulin lispro (HUMALOG KWIKPEN) 100 unit/mL inpn Inject 44 units breakfast, 48 units lunch, 42 units with dinner. Disp: 10 Pen Rfl: 5 blood sugar diagnostic (BLOOD GLUCOSE TEST) test strip Test blood sugar(s) 2 times daily. Dx: 250.02. Insulin: Yes Disp: 100 Strip Rfl: 11 Lancets (ACCU-CHEK MULTICLIX LANCET) lancets Test blood sugar four (4) times daily and as needed. DX 250.02, Insulin-Yes Disp: 102 Each Rfl: 1 COMPOUNDED PRESCRIPTION Diabetic ShoesDx: E11.4;E11.21 Disp: 1 Kit Rfl: 0 citalopram (CELEXA) 20 mg tablet Take 1 tablet by mouth once daily. Disp: 90 tablet Rfl: 3 atorvastatin (LIPITOR) 20 mg tablet Take 1 tablet by mouth daily at bedtime. Disp: 90 tablet Rfl: 3 lisinopril (ZESTRIL, PRINIVIL) 10 mg tablet Take 1 tablet by mouth once daily. Disp: 90 tablet Rfl: 3 insulin needles, DISPOSABLE, (BD INSULIN PEN NEEDLE UF) 31 X 5/16 ndle Use one for each dose, 7 per day/. Dx: 250.02. Insulin: yes. Disp: 200 Each Rfl: 11 Blood-Glucose Meter monitoring kit Daily glucose check. Dx 250.00 Disp: 1 Each Rfl: 0 meclizine (ANTIVERT) 25 mg tab Take 25 mg by mouth three times daily. Disp: Rfl: budesonide (PULMICORT FLEXHALER) 180 mcg/actuation aepb Inhale 2 Puffs as instructed twice daily. Disp: Rfl: doxycycline monohydrate 100 mg tablet Take 1 tablet by mouth twice daily. Disp: 20 tablet Rfl: 0 albuterol HFA (PROAIR HFA) 90 mcg/actuation inhaler Inhale 2 Puffs as instructed every 4 hours as needed. Disp: 1 Inhaler Rfl: 0 No current facility-administered medications for this visit. Allergies As of Date: 07/30/2017 Allergen Noted Reaction BACTRIM [SULFAMETHOXAZOLE] 01/28/2013 Rash GENTAMYCIN [GENTAMICIN] 09/24/2013 Other: See Comments Fully Assessed 07/30/2017 REVIEW OF SYSTEMS: General: no fever, chills or acute changes in weight in the last 6 months, had pneumonia in Apr 2017. Skin: pruritis and dry skin Eyes: no blurred or double vision or eye pain, when dizzy he see double when blood sugar is >400 or Hi readings Cardiac: denies chest pain, heart palpitations or orthopnea Pulmonary: denies wheezing, productive cough or exertional dyspnea GI: diarrhea Neuro: denies seizures, numbness/tingling in hands and numbness/tingling in feet Musc: denies history of upper or lower extremity weakness Endocrine: complains of polyuria, polydipsia and excessive fatigue Hematology: Negative for anemia, easy bleeding and bruising. All other systems: non-contributory PHYSICAL EXAM: BP 156/105 (BP Site: Left Arm, BP Position: Sitting, BP Cuff Size: Large Adult) Pulse 86 Ht 172 cm (5' 7.72) Wt 93.4 kg (206 lb) SpO2 99% BMI 31.58 kg/m2 General: Well appearing, alert, in no acute distress, well- hydrated, well nourished., Obese Skin: skin color, texture, turgor normal, no rashes or lesions. Head: normocephalic, no masses, lesions, tenderness or abnormalities. Eyes: Anicteric sclera. Pupils are equally round and reactive to light. Extraocular movements are intact. Oropharynx: Lips, mucosa, and tongue normal, teeth and gums normal, oropharynx normal Neck: Supple, no adenopathy; thyroid symmetric, normal size, no bruits Heart: RRR without murmur, gallop, or rubs. No ectopy Abdomen: soft, non-tender, positive bowel sounds Extremities: + calluses, no edema, or ulcers present. and sensation decreased b/l based on 128hz tuning fork examination. Peripheral Pulses: posterior tibial and doralis pedis pulses 2+ and symmetrical Feet: ve + calluses, no edema, or ulcers present. and sensation decreased b/l based on 128hz tuning fork examination. DATA: Creatinine Date Value Ref Range Status 12/20/2016 0.78 0.73 - 1.22 mg/dL Final Hemoglobin A1C (%) Date Value 06/26/2017 7.8 ) No components found for: URINEALBUMIN Cholesterol, Total (mg/dL) Date Value 11/17/2016 106 HDL Cholesterol (mg/dL) Date Value 11/17/2016 39 LDL Cholesterol (mg/dL) Date Value 11/17/2016 43 Triglyceride (mg/dL) Date Value 11/17/2016 121 IMPRESSION: Mr. Zarate is a 47 year old male here for evaluation of DM Type 2 complicated by hypertension, hyperlipidemia and peripheral neuropathy. RECOMMENDATIONS: 1. Glycemic control: Target HbA1C is less than 7.0% per ADA guidelines. This patient is not at target. At this point I will initiate the following changes to his diabetes regimen: change 70/30: 80 units bid, and add metformin XR 100 mg once daily with Humalog sliding scale. The patient was reminded to check his blood glucose 4 times and to record the data in a logbook. He was advised to bring their logbook to each office visit. I recommended at least 150 minutes per week of moderate physical activity, such as walking and to reduce carbohydrates and overall caloric intake. 2. Hypertension/BP control: BP goal for patients with diabetes is 130/80. This patient is not at target on current regimen. I will defer management of this to their primary care physician. 3. Lipids: Target LDL cholesterol in patients with diabetes is less than 100, less than 70 if patient has overt CVD. Several studies have shown cardiovascular benefits of statin therapy in all patients with diabetes over age 40 with at least 1 CVD risk factor. This patient is currently at target on statin therapy. 4. Antiplatelet therapy: Low dose antiplatelet therapy is recommended for patients with diabetes at increased cardiovascular risk. This includes most men over age 50 and most women over age 60. This patient is not on antiplatelet therapy. 5. Nephropathy screening: Annual measurement of urine albumin excretion is recommended in patients with diabetes. This patient has microalbuminuria and is on PARKER-I or ARB therapy. 6. Ophthalmology: Annual dilated eye exams are recommended for patients with type 1 and type 2 diabetes. This patient is up to date with their annual eye exam and has no history of retinopathy. 7. Immunization: Annual influenza was recommended. Pneumococcal vaccine was recommended. 8. Obesity: pathophysiology AND treatment options discussed. Diet, exercise and food supplement discussed. 9. Lack of energy: likely multifactorial. Optimize DM Rx, encouraged hydration and regular exercise. The patient was asked to follow up with me in 3 months. I advised the patient to call in with their blood glucose readings to the office in 2 weeks if needed. I spent 60 minutes face to face in this visit, with more than 50% of the time devoted to patient counseling. Discussed: pathophysiology of type-2 diabetes, importance of diet and exercise, over weight and blood glucose control, medications for type-2 diabetes applicable to him, ADA recommendations, simple and complex carbs, glycemic index, how Metformin, Glipizide, Amaryl, Januvia, Victoza, Lantus, Humalog works, etc Sheldon Carroll MD July 30, 2017 [facility] Observed: 07/30/2017 Status: COMPLETED Source: [place] 12:45 PM [facility] REPOSITORY Office Visit (LUCA) TITI ZARATE ([id number]) 1970 M Date Time Provider Department 07/30/17 12:45 PM SHELDON CARROLL During your visit today, we recorded the following information about you: Pulse Blood pressure Weight Height 86/minute 156/102 93.4 kg 1.72 m Sheldon Carroll MD 08/28/2017 7:56 PM Signed Reason for Consultation: DM Type 2 Referring Physician: Nikko Dukes, INTERNAL SECURITY MANAGER [id number] [place] [facility] [id number] My final recommendations will be communicated back to the requesting physician by way of shared Medical record or letter via US mail. HISTORY OF PRESENT ILLNESS; Mr. Zarate is a 47 year old male presenting as a new patient to me regarding DM Type 2. He was initially diagnosed with diabetes in his 20s. He does have a family history of diabetes mellitus in his Mother and maternal aunts. The patient reports the following microvascular complications: nephropathy and peripheral neuropathy. Titi has no know macrovascular complications of diabetes. He has been on insulin since late 20s. His current diabetes regimen is Levemir 47 units BID, Humalog 44-48-42. Regarding symptoms of hyperglycemia, he is is experiencing polyuria and polydipsia. Dietary History is as follows: none Exercise: none Titi is checking his blood glucose 3-4 times daily. He did not bring a logbook today for review: ? Fastin-250 mg/dL ? Prelunch: 280-300 mg/dL ? Predinner: 200-230 mg/dL ? 2 hr post dinner: 280-300 mg/dL Hypoglycemia frequency: lowest ever was 80 Hypoglycemia awareness: Yes The patient comes into the office today with complaints of uncontrolled DM. Last eye exam: November 2016: no retinopathy Vacc: up to date Last feet exam: 4 yrs ago Diabetic education: never PAST MEDICAL HISTORY Diagnosis Date - Abdominal tenderness, left upper quadrant - Anxiety - Depression - Diabetes mellitus type II 2010 - Diabetic nephropathy (HCC) - Hypercholesteremia - Hypertension PAST SURGICAL HISTORY Procedure Laterality Date - COLONOSCOP W/ OR W/O [facility] SPEC 09-13-11 Repeat in 3 years (-2014) - LAP CHOLECYSTECT/CHOLANGIOGRAPHY 07/09/08 - PAST SURGICAL HISTORY OF right knee - PAST SURGICAL HISTORY OF right shoulder blade - REPAIR ING HERNIA,5+Y/O,REDUCIBL Hernia repair, inguinal FAMILY HISTORY Problem Relation Age of Onset - Cancer Paternal Grandfather prostate - Cancer Maternal Grandfather - Hypertension Maternal Aunt - Diabetes Mother - Diabetes Maternal Aunt - Colon Cancer Mother at age 61 Social History Marital status: Single Spouse name: Years of education: Number of children: 2 Occupational History Occupation Employer Comment [employer] Social History Main Topics Smoking status: Never Smoker Smokeless status: Never Used Alcohol use: Yes Comment: beer Drug use: No Sexual activity: Not Currently Current Outpatient Prescriptions: insulin detemir (LEVEMIR FLEXTOUCH) 100 unit/mL (3 mL) inpn injection Inject 47 Units subcutaneously twice daily. Disp: 10 Pen Rfl: 5 insulin lispro (HUMALOG KWIKPEN) 100 unit/mL inpn Inject 44 units breakfast, 48 units lunch, 42 units with dinner. Disp: 10 Pen Rfl: 5 blood sugar diagnostic (BLOOD GLUCOSE TEST) test strip Test blood sugar(s) 2 times daily. Dx: 250.02. Insulin: Yes Disp: 100 Strip Rfl: 11 Lancets (ACCU-CHEK MULTICLIX LANCET) lancets Test blood sugar four (4) times daily and as needed. DX 250.02, Insulin-Yes Disp: 102 Each Rfl: 1 COMPOUNDED PRESCRIPTION Diabetic ShoesDx: E11.4;E11.21 Disp: 1 Kit Rfl: 0 citalopram (CELEXA) 20 mg tablet Take 1 tablet by mouth once daily. Disp: 90 tablet Rfl: 3 atorvastatin (LIPITOR) 20 mg tablet Take 1 tablet by mouth daily at bedtime. Disp: 90 tablet Rfl: 3 lisinopril (ZESTRIL, PRINIVIL) 10 mg tablet Take 1 tablet by mouth once daily. Disp: 90 tablet Rfl: 3 insulin needles, DISPOSABLE, (BD INSULIN PEN NEEDLE UF) 31 X 5/16 ANDquot; ndle Use one for each dose, 7 per day/. Dx: 250.02. Insulin: yes. Disp: 200 Each Rfl: 11 Blood-Glucose Meter monitoring kit Daily glucose check. Dx 250.00 Disp: 1 Each Rfl: 0 meclizine (ANTIVERT) 25 mg tab Take 25 mg by mouth three times daily. Disp: Rfl: budesonide (PULMICORT FLEXHALER) 180 mcg/actuation aepb Inhale 2 Puffs as instructed twice daily. Disp: Rfl: doxycycline monohydrate 100 mg tablet Take 1 tablet by mouth twice daily. Disp: 20 tablet Rfl: 0 albuterol HFA (PROAIR HFA) 90 mcg/actuation inhaler Inhale 2 Puffs as instructed every 4 hours as needed. Disp: 1 Inhaler Rfl: 0 No current facility-administered medications for this visit. Allergies As of Date: 07/30/2017 Allergen Noted Reaction BACTRIM [SULFAMETHOXAZOLE] 01/28/2013 Rash GENTAMYCIN [GENTAMICIN] 09/24/2013 Other: See Comments Fully Assessed 07/30/2017 REVIEW OF SYSTEMS: General: no fever, chills or acute changes in weight in the last 6 months, had pneumonia in Apr 2017. Skin: pruritis and dry skin Eyes: no blurred or double vision or eye pain, when dizzy he see double when blood sugar is ANDgt;400 or Hi readings Cardiac: denies chest pain, heart palpitations or orthopnea Pulmonary: denies wheezing, productive cough or exertional dyspnea GI: diarrhea Neuro: denies seizures, numbness/tingling in hands and numbness/tingling in feet Musc: denies history of upper or lower extremity weakness Endocrine: complains of polyuria, polydipsia and excessive fatigue Hematology: Negative for anemia, easy bleeding and bruising. All other systems: non-contributory PHYSICAL EXAM: BP 156/105 (BP Site: Left Arm, BP Position: Sitting, BP Cuff Size: Large Adult) Pulse 86 Ht 172 cm (5' 7.72ANDquot;) Wt 93.4 kg (206 lb) SpO2 99% BMI 31.58 kg/m2 General: Well appearing, alert, in no acute distress, well- hydrated, well nourished., Obese Skin: skin color, texture, turgor normal, no rashes or lesions. Head: normocephalic, no masses, lesions, tenderness or abnormalities. Eyes: Anicteric sclera. Pupils are equally round and reactive to light. Extraocular movements are intact. Oropharynx: Lips, mucosa, and tongue normal, teeth and gums normal, oropharynx normal Neck: Supple, no adenopathy; thyroid symmetric, normal size, no bruits Heart: RRR without murmur, gallop, or rubs. No ectopy Abdomen: soft, non-tender, positive bowel sounds Extremities: + calluses, no edema, or ulcers present. and sensation decreased b/l based on 128hz tuning fork examination. Peripheral Pulses: posterior tibial and doralis pedis pulses 2+ and symmetrical Feet: ve + calluses, no edema, or ulcers present. and sensation decreased b/l based on 128hz tuning fork examination. DATA: Creatinine Date Value Ref Range Status 12/20/2016 0.78 0.73 - 1.22 mg/dL Final Hemoglobin A1C (%) Date Value 06/26/2017 7.8 ) No components found for: URINEALBUMIN Cholesterol, Total (mg/dL) Date Value 11/17/2016 106 HDL Cholesterol (mg/dL) Date Value 11/17/2016 39 LDL Cholesterol (mg/dL) Date Value 11/17/2016 43 Triglyceride (mg/dL) Date Value 11/17/2016 121 IMPRESSION: Mr. Zarate is a 47 year old male here for evaluation of DM Type 2 complicated by hypertension, hyperlipidemia and peripheral neuropathy. RECOMMENDATIONS: 1. Glycemic control: Target HbA1C is less than 7.0% per ADA guidelines. This patient is not at target. At this point I will initiate the following changes to his diabetes regimen: change 70/30: 80 units bid, and add metformin XR 100 mg once daily with Humalog sliding scale. The patient was reminded to check his blood glucose 4 times and to record the data in a logbook. He was advised to bring their logbook to each office visit. I recommended at least 150 minutes per week of moderate physical activity, such as walking and to reduce carbohydrates and overall caloric intake. 2. Hypertension/BP control: BP goal for patients with diabetes is 130/80. This patient is not at target on current regimen. I will defer management of this to their primary care physician. 3. Lipids: Target LDL cholesterol in patients with diabetes is less than 100, less than 70 if patient has overt CVD. Several studies have shown cardiovascular benefits of statin therapy in all patients with diabetes over age 40 with at least 1 CVD risk factor. This patient is currently at target on statin therapy. 4. Antiplatelet therapy: Low dose antiplatelet therapy is recommended for patients with diabetes at increased cardiovascular risk. This includes most men over age 50 and most women over age 60. This patient is not on antiplatelet therapy. 5. Nephropathy screening: Annual measurement of urine albumin excretion is recommended in patients with diabetes. This patient has microalbuminuria and is on PARKER-I or ARB therapy. 6. Ophthalmology: Annual dilated eye exams are recommended for patients with type 1 and type 2 diabetes. This patient is up to date with their annual eye exam and has no history of retinopathy. 7. Immunization: Annual influenza was recommended. Pneumococcal vaccine was recommended. 8. Obesity: pathophysiology ANDamp; treatment options discussed. Diet, exercise and food supplement discussed. 9. Lack of energy: likely multifactorial. Optimize DM Rx, encouraged hydration and regular exercise. The patient was asked to follow up with me in 3 months. I advised the patient to call in with their blood glucose readings to the office in 2 weeks if needed. I spent 60 minutes face to face in this visit, with more than 50% of the time devoted to patient counseling. Discussed: pathophysiology of type-2 diabetes, importance of diet and exercise, over weight and blood glucose control, medications for type- 2 diabetes applicable to him, ADA recommendations, simple and complex carbs, glycemic index, how Metformin, Glipizide, Amaryl, Januvia, Victoza, Lantus, Humalog works, etc Sheldon Carroll MD July 30, 2017 Referring Provider: NIKKO DUKES ([facility]) [[id number]] Allergies As of Date: 07/30/2017 Noted Allergy Reaction BACTRIM (SULFAMETHOXAZOLE) 01/28/2013 2 - Rash GENTAMYCIN (GENTAMICIN) 09/24/2013 14 - Other: See Comments Comments: Eye irritation Date Reviewed: 07/30/2017 Reviewed by: Lorie Cox - Fully Assessed Reason for Visit: New Patient [172] Cmt: Diabetes Primary Visit Diagnosis:Uncontrolled type 2 diabetes mellitus with complication, with long-term current use of insulin (HCC) [E11.8, E11.65, Z79.4] Other Visit Diagnoses:Essential hypertension [I10] Mixed hyperlipidemia [E78.2] Neuropathy (HCC) [G62.9] Nephropathy [N28.9] 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] Lack of energy [R53.83] Order(s):insulin 70/30 NPH/regular units/mL (HUMULIN 70/30 U-100 KWIKPEN) 100 unit/mL (70-30) inpnInject 80 Units subcutaneously twice daily with meals.Disp: 10 PenRfl: 1 metFORMIN ER (GLUCOPHAGE XR) 500 mg 24 hr tabletTake 2 tablets by mouth daily with lunch.Disp: 60 tabletRfl: 5 DIABETES EDUCATION (CDE) (X20) [[id number]] Order #: [id number]: 1 Prescriptions as of 07/30/2017 Sig: INSULIN LISPRO (U-100) 100 UN* Inject 44 units breakfast, 48* BLOOD SUGAR DIAGNOSTIC STRIPS Test blood sugar(s) 2 times d* LANCETS Test blood sugar four (4) basil* COMPOUNDED PRESCRIPTION Diabetic Shoes Dx: E11.4;E11* CITALOPRAM 20 MG TABLET Take 1 tablet by mouth once d* ATORVASTATIN 20 MG TABLET Take 1 tablet by mouth daily * LISINOPRIL 10 MG TABLET Take 1 tablet by mouth once d* PEN NEEDLE, DIABETIC 31 GAUGE* Use one for each dose, 7 per * BLOOD-GLUCOSE METER KIT Daily glucose check. Dx 250.* INSULIN NPH-REGULAR 70-30 U-1* Inject 80 Units subcutaneousl* METFORMIN ER 500 MG TABLET,EX* Take 2 tablets by mouth daily* MECLIZINE 25 MG TABLET Take 25 mg by mouth three basil* BUDESONIDE 180 MCG/ACTUATION * Inhale 2 Puffs as instructed * DOXYCYCLINE MONOHYDRATE 100 M* Take 1 tablet by mouth twice * ALBUTEROL SULFATE HFA 90 MCG/* Inhale 2 Puffs as instructed * Medication notes this encounter MECLIZINE 25 MG TABLET >> Lorie Cox 07/30/2017 12:51 PM >> LORIE COX Jul 30, 2017 12:51 PM Pt not taking BUDESONIDE 180 MCG/ACTUATION BREATH ACTIVATED POWDER INHALER >> Lorie Sonja 07/30/2017 12:50 PM >> LORIE COX Jul 30, 2017 12:50 PM Pt not taking DOXYCYCLINE MONOHYDRATE 100 MG TABLET >> Lorie Cox 07/30/2017 12:50 PM >> LORIE COX Jul 30, 2017 12:50 PM Pt not taking ALBUTEROL SULFATE HFA 90 MCG/ACTUATION AEROSOL INHALER >> Lorie Cox 07/30/2017 12:50 PM >> LORIE COX Jul 30, 2017 12:50 PM Pt not taking Problem List As Of Date 07/30/2017 Noted Resolved Uncontrolled type II diabetes mellitus with nep*INVALID FOR* More... Hyperbilirubinemia [E80.6] INVALID FOR* More... 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 METFORMIN ER 500 MG TABLET,EXTENDED * 60 t* 5 07/30/2017 Route: ORAL Sig: Take 2 tablets by mouth daily with lunch. Medications Discontinued During This Encounter insulin detemir (LEVEMIR FLEXTOUCH) * 10 P* 5 06/24/2017 07/30/2017 Route: SUBCUTANEOUS Sig: Inject 47 Units subcutaneously twice daily. Disc: Changing Therapy/Dosage Form Disposition: Return in about 3 months (around 10/30/2017). Follow-up and Disposition History Recorded Encounter Status:Closed by SHELDON CARROLL MD on 08/28/17 [facility] Observed: 07/30/2017 Status: COMPLETED Source: [place] 12:00 AM [facility] REPOSITORY Letter Text Titi Zarate Sheldon Carroll MD [facility] [address] [place] [address] July 30, 2017 Titi Zarate [facility] [address] [place] [address] To Whom it May Concern, This is to confirm that Titi Zarate had an appointment with me on 07/30/2017. Sincerely yours, Sheldon Carroll MD (electronically signed to expedite processing) [facility] Observed: 06/28/2017 Status: COMPLETED Source: [place] 12:00 AM [facility] REPOSITORY Telephone ([facility]) TITI ZARATE ([id number]) 1970 M Date Time Provider Department 06/28/17 LAURY LINDSEY (CONFERENCE RESERVATIONIST) [facility] During your visit today, we recorded the following information about you: Leigh Leigh LPN 06/28/2017 1:47 PM Signed Patients significant other calling, letter that was written on 06/26 had the wrong month on it. Asking for a letter with the correct dates 06/18/2017-06/30/2017 and for to also to state that he can return to work on 06/30/2017 without an restrictions. Asking that letter be faxed to [phone] Att: Mitesh. Letter pended. Please advise. Laury Lindsey CNP 06/28/2017 2:41 PM Signed Letter completed. Will have it faxed as requested. MICAH Roberts Ma 06/28/2017 2:51 PM Signed Letter faxed. Shruti Vidal LPN 06/29/2017 8:54 AM Signed Pt calling, requesting letter be re-faxed. Letter re-faxed to number below. Allergies As of Date: 06/28/2017 Noted Allergy Reaction BACTRIM (SULFAMETHOXAZOLE) 01/28/2013 2 - Rash GENTAMYCIN (GENTAMICIN) 09/24/2013 14 - Other: See Comments Comments: Eye irritation Date Reviewed: 06/21/2017 Reviewed by: Angela Patrick LPN - Fully Assessed Reason for Visit: Return To Work Letter [[id number]] Prescriptions as of 06/28/2017 Sig: INSULIN DETEMIR 100 UNIT/ML (* Inject 47 Units subcutaneousl* INSULIN LISPRO 100 UNIT/ML JONES* Inject 44 units breakfast, 48* MECLIZINE 25 MG TABLET Take 25 mg by mouth three basil* BLOOD SUGAR DIAGNOSTIC STRIPS Test blood sugar(s) 2 times d* LANCETS Test blood sugar four (4) basil* BUDESONIDE 180 MCG/ACTUATION * Inhale 2 Puffs as instructed * DOXYCYCLINE MONOHYDRATE 100 M* Take 1 tablet by mouth twice * ALBUTEROL SULFATE HFA 90 MCG/* Inhale 2 Puffs as instructed * COMPOUNDED PRESCRIPTION Diabetic Shoes Dx: E11.4;E11* CITALOPRAM 20 MG TABLET Take 1 tablet by mouth once d* ATORVASTATIN 20 MG TABLET Take 1 tablet by mouth daily * LISINOPRIL 10 MG TABLET Take 1 tablet by mouth once d* PEN NEEDLE, DIABETIC 31 GAUGE* Use one for each dose, 7 per * BLOOD-GLUCOSE METER KIT Daily glucose check. Dx 250.* Problem List As Of Date 06/28/2017 Noted Resolved Uncontrolled type II diabetes mellitus with nep*INVALID FOR* More... Hyperbilirubinemia [E80.6] INVALID FOR* More... 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 Titi may return to work on 06/30/2017 with no restrictions Sincerely yours, Laury Lindsey CNP Encounter Status:Closed by RAPHAEL BASURTO MA on 06/28/17 EMERGENCY DEPARTMENT Observed: 06/27/2017 Status: F Source: [place] SUMMARY 9:22 PM [facility] EMERGENCY DEPARTMENT SUMMARY NAME NUMBER SEX AGE ADMIT DISC TYPE MED.RECORD# TESSA Arthur [id number] M 47 06/24/17 06/25/17 E.R. [id number] ROOM:ER DATE OF :1970 PHYSICIAN NO.:[id number] PHYSICIAN NAME:E-SIGN CAYETANO STALLWORTH DO PHYSICIAN:WALDO MARIE MD HISTORY OF PRESENT ILLNESS: This gentleman came here to the emergency room stating that he just did not feel well and his glucose was too high. History goes that he ran out of his insulin, Lantus and Humalog, on June 23, 2017 and did not take any on the and came here on the evening of the for assistance. The last day of his therapy was on the , and on the he had no medicine and he comes here on the . He is supposed to Lantus 45 units a.m. and p.m. and he is supposed to be taking Humalog 44 units in the morning and 48 units at lunch and around 40 in the evening. He states that he does not know how many calories he consumes. He does not know what his carbohydrate demands are. He states that he would like to see a photogrammetric stereo compiler some day. He is currently seeing Dr. Haas at [facility]. He called for a recheck appointment with Dr. Dukes. The insulin was changed, and there was a problem getting the insulin called into his pharmacy and that is why he ran out. Otherwise, no headache, no vomiting, no diarrhea, no chest pain, no shortness of breath. No urine problems and no rash. He is seen in room #3. I have seen him in the past, not recently. PAST MEDICAL HISTORY: No history of pancreatitis. No history of cardiac disease. No history of chronic lung disorders. SOCIAL HISTORY: He is , here with his . He is a nonsmoker. Rare alcohol use. PHYSICAL EXAMINATION: He is pleasant and alert. He presents himself well. He is a nice choco and his is also very nice. Head is normocephalic. Tympanic membranes, canals and pinnae are normal in appearance. Neck is supple. No anterior, posterior or axillary nodes. Neck is supple. He is not tachypneic. Lungs are clear. There is no expiratory wheeze, rales, rhonchi or paradoxical chest motion. Heart rate and rhythm are regular. PMI is left breast. Abdomen is soft without discomfort. Extremities are not swollen or tender. Skin is warm and dry. VITAL SIGNS: 98.1 temporal scanning, 91 radial pulse, 20 respires, 160/111 blood pressure, 96% saturation. He does not appear in distress. He is alert and appropriate. DIAGNOSTIC DATA: Glucose is elevated. On arrival, glucometer reading greater than 500 and it was verified twice. We gave him 10 units insulin R IV and rechecked his electrolytes in about an hour and a half or so. The results came back 133 sodium, 4.1 potassium, 102 chloride, 23 CO2, glucose 383, another bolus was ordered and then he was given lunch and 45 units Lantus subcutaneously and 44 units Humalog subcutaneously. Labs were rechecked at 6:00 and the results of the labs are pending. Bedside sugar was 315. We will recheck his labs one more time at 7:00, and if his glucose is over 300, we will give him Humalog for lunch. EMERGENCY DEPARTMENT COURSE AND TREATMENT: IV was placed. Labs were ordered. He was given a liter of fluid and labs came back at 581 sugar, 98 lipase, 131 glucose, 96 chloride, 20.9 CO2,50 SGPT. Urine was essentially normal except for smelling glucose. We rechecked his sugar thereafter by fingerstick and that was 454. DIAGNOSIS: Hyperglycemia, out of medications. PLAN/DISPOSITION: He indicates that he has contacted Dr. Dukes and they are making arrangements for him to obtain his insulin this morning, so he should be okay to go. Continue to follow up with Dr. Dukes in the office or Dr. Haas. Return to the ER as necessary. D: Cayetano Stallworth MD TD: 06:16 JOB #: [id number] Electronically signed by: E-SIGN CAYETANO STALLWORTH DO 06/27/17 21:20 Transcribed by: sp 06/26/2017 09:04 HEMOGLOBIN A1C Collected: 06/26/2017 Status: F Source: [place] 10:40 AM [facility] REPOSITORY TYPE CODE TESTS RESULT OUT OF REFERENCE UNITS RANGE LAB HGBA1C 4.3-5.6 % High Hemoglobin A1c 7.8 LAB HBA0 mg/dL Est. Average Glucose 177 Result Comment: eAG: (Estimated average glucose) is a calculated value from HgbA1c and is field marketing representative of the average blood glucose level in the last 2-3 month period. Performed By: #### HBA1C #### [facility] [address], [place] [address] PROGRESS Observed: 06/26/2017 Status: COMPLETED Source: [place] 9:50 AM [facility] REPOSITORY HNO ID: [id number] Author: Laury Lindsey Service: (none) Author Type: Nurse Practitioner Type: Progress Notes Filed: 06/26/2017 10:39 AM Note Text: CC: Patient presents with: Recheck: ER follow up, elevated BS HPI Titi Zarate is a 47 year old male who presents today with girlfriend for ER follow up from 06/24/17. Patient was evaluated at [facility] for complaints of elevated blood sugars r/t being out of his Lantus insulin Glucose readings were high and 454 and 475. Patient was given 45 units of Lantus and 44 units of Humalog and given a boxed lunch. Labs were also obtained CBC, CMP, Lipase and UA- results not available at this time. Patient was discharged on 06/25/17 with prescriptions for Levemir 47 units 7a and 7p. Lispro 44u at breakfast, 48u at lunch and 42u at dinner. Appointments with clinical pharmacist at [facility] 07/22/17 and Endocrine 07/29/17 Since ER evaluation patient continues to complain of fatigue, blurry vision, polyuria, polydipsia dizziness with x2 falls just prior to ER visit. Since our last visit he denies low sugar/hypoglycemic reactions, weight loss/gain or bowel changes/loose stools. Patient does have some numbness of feet. His girlfriend checks feet regularly. Reiteration of importance of diabetic foot care give Follows a diabetic diet probably noncomplaint although I cannot elucidate specific history. He is compliant with medication(s) and is tolerating med(s) without any side effects. He reports checking his glucose on a three times a day, sometimes more schedule with sugars in the <200 range (350-360s). Patient's last HgA1C was Hemoglobin A1C (%) Date Value 11/17/2016 6.3 09/10/2015 8.1 ) Last Ophthalmology exam was within the past 3 months Influenza vaccine in the fall REVIEW OF SYSTEMS General: no fevers, no chills, no night sweats, no recurrent infections and no significant changes in weight HEENT: no frequent or significant headaches, no changes in hearing, no nose bleeds, no sinus or nasal problems Respiratory: no cough, no wheezing, no shortness of breath, no hemoptysis Cardiovascular: no chest pain, no chest pressure, no palpitations and no swelling GI: No nausea, vomiting, or diarrhea Musculoskeletal: Negative for joint pain or swelling and back pain. + intermittent muscle cramps PAST MEDICAL HISTORY Diagnosis Date - Abdominal tenderness, left upper quadrant - Anxiety - Depression - Diabetes mellitus type II 2010 - Diabetic nephropathy (HCC) - Hypercholesteremia - Hypertension PAST SURGICAL HISTORY Procedure Laterality Date - COLONOSCOP W/ OR W/O [facility] SPEC 09-13-11 Repeat in 3 years (-2014) - LAP CHOLECYSTECT/CHOLANGIOGRAPHY 07/09/08 - PAST SURGICAL HISTORY OF right knee - PAST SURGICAL HISTORY OF right shoulder blade - REPAIR ING HERNIA,5+Y/O,REDUCIBL Hernia repair, inguinal ALLERGIES Bactrim [Sulfamethoxazole]; Gentamycin [Gentamicin] MEDICATIONS insulin detemir (LEVEMIR FLEXTOUCH) 100 unit/mL (3 mL) inpn injection Inject 47 Units subcutaneously twice daily. insulin lispro (HUMALOG KWIKPEN) 100 unit/mL inpn Inject 44 units breakfast, 48 units lunch, 42 units with dinner. meclizine (ANTIVERT) 25 mg tab Take 25 mg by mouth three times daily. blood sugar diagnostic (BLOOD GLUCOSE TEST) test strip Test blood sugar(s) 2 times daily. Dx: 250.02. Insulin: Yes Lancets (ACCU-CHEK MULTICLIX LANCET) lancets Test blood sugar four (4) times daily and as needed. DX 250.02, Insulin-Yes budesonide (PULMICORT FLEXHALER) 180 mcg/actuation aepb Inhale 2 Puffs as instructed twice daily. doxycycline monohydrate 100 mg tablet Take 1 tablet by mouth twice daily. albuterol HFA (PROAIR HFA) 90 mcg/actuation inhaler Inhale 2 Puffs as instructed every 4 hours as needed. COMPOUNDED PRESCRIPTION Diabetic ShoesDx: E11.4;E11.21 citalopram (CELEXA) 20 mg tablet Take 1 tablet by mouth once daily. atorvastatin (LIPITOR) 20 mg tablet Take 1 tablet by mouth daily at bedtime. lisinopril (ZESTRIL, PRINIVIL) 10 mg tablet Take 1 tablet by mouth once daily. insulin needles, DISPOSABLE, (BD INSULIN PEN NEEDLE UF) 31 X 5/16 ndle Use one for each dose, 7 per day/. Dx: 250.02. Insulin: yes. Blood-Glucose Meter monitoring kit Daily glucose check. Dx 250.00 FAMILY HISTORY Problem Relation Age of Onset - Cancer Paternal Grandfather prostate - Cancer Maternal Grandfather - Hypertension Maternal Aunt - Diabetes Mother - Diabetes Maternal Aunt - Colon Cancer Mother at age 61 Social History Substance Use Topics - Smoking status: Never Smoker - Smokeless tobacco: Never Used - Alcohol use Yes Comment: beer PHYSICAL EXAM BP 128/90 Pulse 92 Temp 36.4 ?C (97.6 ?F) (Temporal Artery) Resp 16 Wt 93.4 kg (206 lb) SpO2 97% BMI 32.26 kg/m2 General Appearance: well appearing, in no acute distress, alert Pysch: mood and affect broad and appropriate Skin: Skin color, texture, turgor normal for age; Head: normocephalic, atraumatic Eyes: conjunctiva pink and moist, no icterus, sclera white, non-injected Lungs: Lungs clear to auscultation. No wheezing, rhonchi, rales Heart: RRR without murmur, gallop, or rubs. No ectopy DIABETIC FOOT EXAM due on 11/30/2014 HBA1C due on 05/20/2017 LDL due on 11/17/2017 DILATED RETINAL EXAM due on 12/21/2017 TETANUS due on 11/09/2020 ONE PNEUMOVAX PRIOR TO AGE 65 Completed INFLUENZA Completed ASSESSMENT/PLAN: 1. Uncontrolled type II diabetes mellitus with nephropathy (HCC) - ICD9: 250.42, 583.81, ICD10: E11.21, E11.65 worsening control - Continue current medications - Check HgA1C - Encouraged regular aerobic exercise and weight loss - Follow up in 3 months, sooner should any other issues arise. - Discussed diabetic education issues of roasterman diabetic complications, hypoglycemic symptoms, diet, medications- side effects and need for compliance, importance of appointments with Bag Inspector and importance of annual examinations with Opthalmology with patient. Informational handouts provided - Stressed the importance of keeping appointments with pharmacist and assembly detailer in July - CONSULT TO PODIATRY - HGB A1C Prescription instructions reviewed with patient as applicable. Potential red flag symptoms discussed with the patient. Reviewed appropriate action plan to take if red flag symptoms occur. Patient agreeable to treatment plan. Laury Lindsey CNP BMP WITH EGFR Collected: 06/25/2017 Status: F Source: [place] 7:22 AM [facility] REPOSITORY TYPE CODE TESTS RESULT OUT OF RANGE REFERENCE UNITS LAB BMP with eGFR(LOINC) BMP with eGFR Result Comment: BASIC METABOLIC PANEL LAB SODIUM(LOINC) 136 - 145 mmol/l SODIUM Low 135 LAB POTASSIUM(LOINC) 3.5 - 5.1 mmol/L POTASSIUM 3.5 LAB CHLORIDE(LOINC) 98 - 107 mmol/L CHLORIDE 101 LAB CO2(LOINC) 21.0 - mmol/L 31.0 CO2 27.9 LAB GLUCOSE(LOINC) 74 - 106 mg/dl GLUCOSE High 249 LAB BUN(LOINC) 6 - 20 mg/dl BUN 8 LAB CREATININE(LOINC) 0.7 - 1.3 mg/dl CREATININE 0.7 LAB CALCIUM(LOINC) 8.6 - mg/dl 10.2 CALCIUM Low 8.5 LAB ANION GAP(LOINC) 10 - 20 mmol/L ANION GAP 10 LAB AGE(LOINC) years AGE 47 LAB eGFR(LOINC) 60 - 999 ML/MINUTE eGFR >60 LAB eGFR(AA)(LOINC) 60 - 999 ML/MINUTE eGFR(AA) >60 Result Comment: ACCORDING TO THE NATIONAL KIDNEY DISEASE EDUCATION PROGRAM(NKDE), A NORMAL eGFR IS A VALUE GREATER THAN OR EQUAL TO 60 ML/MIN/1.73 SQ METERS. CHRONIC KIDNEY DISEASE: <60mL/MIN/1.73 SQ METERS KIDNEY FAILURE: <15mL/MIN/1.73 SQ METERS THIS TEST SHOULD ONLY BE USED FOR PATIENTS 18 YEARS OF AGE AND OLDER. Performed By: #### [id number] #### [facility],[address] [place] [address] BMP WITH EGFR Collected: 06/25/2017 Status: F Source: [facility] 5:52 AM [facility] REPOSITORY TYPE CODE TESTS RESULT OUT OF RANGE REFERENCE UNITS LAB BMP with eGFR(LOINC) BMP with eGFR Result Comment: BASIC METABOLIC PANEL LAB SODIUM(LOINC) 136 - 145 mmol/l SODIUM Low 134 LAB POTASSIUM(LOINC) 3.5 - 5.1 mmol/L POTASSIUM 3.5 LAB CHLORIDE(LOINC) 98 - 107 mmol/L CHLORIDE 100 LAB CO2(LOINC) 21.0 - mmol/L 31.0 CO2 23.8 LAB GLUCOSE(LOINC) 74 - 106 mg/dl GLUCOSE High 325 LAB BUN(LOINC) 6 - 20 mg/dl BUN 8 LAB CREATININE(LOINC) 0.7 - 1.3 mg/dl CREATININE 0.7 LAB CALCIUM(LOINC) 8.6 - mg/dl 10.2 CALCIUM 8.6 LAB ANION GAP(LOINC) 10 - 20 mmol/L ANION GAP 14 LAB AGE(LOINC) years AGE 47 LAB eGFR(LOINC) 60 - 999 ML/MINUTE eGFR >60 LAB eGFR(AA)(LOINC) 60 - 999 ML/MINUTE eGFR(AA) >60 Result Comment: ACCORDING TO THE NATIONAL KIDNEY DISEASE EDUCATION PROGRAM(NKDE), A NORMAL eGFR IS A VALUE GREATER THAN OR EQUAL TO 60 ML/MIN/1.73 SQ METERS. CHRONIC KIDNEY DISEASE: <60mL/MIN/1.73 SQ METERS KIDNEY FAILURE: <15mL/MIN/1.73 SQ METERS THIS TEST SHOULD ONLY BE USED FOR PATIENTS 18 YEARS OF AGE AND OLDER. Performed By: #### [id number] #### [facility],[address] [place], [place] [id number] BMP WITH EGFR Collected: 06/25/2017 Status: F Source: [facility] 2:28 AM [facility] REPOSITORY TYPE CODE TESTS RESULT OUT OF RANGE REFERENCE UNITS LAB BMP with eGFR(LOINC) BMP with eGFR Result Comment: BASIC METABOLIC PANEL LAB SODIUM(LOINC) 136 - 145 mmol/l SODIUM Low 133 LAB POTASSIUM(LOINC) 3.5 - 5.1 mmol/L POTASSIUM 4.1 LAB CHLORIDE(LOINC) 98 - 107 mmol/L CHLORIDE 102 LAB CO2(LOINC) 21.0 - mmol/L 31.0 CO2 23.3 LAB GLUCOSE(LOINC) 74 - 106 mg/dl GLUCOSE High 383 LAB BUN(LOINC) 6 - 20 mg/dl BUN 9 LAB CREATININE(LOINC) 0.7 - 1.3 mg/dl CREATININE 0.7 LAB CALCIUM(LOINC) 8.6 - mg/dl 10.2 CALCIUM Low 8.5 LAB ANION GAP(LOINC) 10 - 20 mmol/L ANION GAP 12 LAB AGE(LOINC) years AGE 47 LAB eGFR(LOINC) 60 - 999 ML/MINUTE eGFR >60 LAB eGFR(AA)(LOINC) 60 - 999 ML/MINUTE eGFR(AA) >60 Result Comment: ACCORDING TO THE NATIONAL KIDNEY DISEASE EDUCATION PROGRAM(NKDE), A NORMAL eGFR IS A VALUE GREATER THAN OR EQUAL TO 60 ML/MIN/1.73 SQ METERS. CHRONIC KIDNEY DISEASE: <60mL/MIN/1.73 SQ METERS KIDNEY FAILURE: <15mL/MIN/1.73 SQ METERS THIS TEST SHOULD ONLY BE USED FOR PATIENTS 18 YEARS OF AGE AND OLDER. Performed By: #### [id number] #### [facility],[address] [place], [place] [id number] GLUCOSE Collected: 06/25/2017 Status: F Source: [place] 1:01 AM [facility] REPOSITORY TYPE CODE TESTS RESULT OUT OF REFERENCE UNITS RANGE LAB GLUCOSE(ADELAIDA 74 - 106 mg/dl NC) High Alert GLUCOSE 486 Result Comment: { CALLED TO CHRIS BY LMM @ 0135 { READ BACK BY CHRIS Zaldivar Performed By: #### [id number] #### [facility],[address] [place] [address] CBC Collected: 06/24/2017 Status: F Source: [place] 11:40 PM [facility] REPOSITORY TYPE CODE TESTS RESULT OUT OF RANGE REFERENCE UNITS LAB CBC(LOINC) CBC Result Comment: CBC-COMPLETE BLOOD COUNT LAB WBC(LOINC) 4.5 - 10.8 x 10EE3/UL WBC 5.0 LAB RBC(LOINC) 4.50 - x 10EE6/UL 6.00 RBC 5.87 LAB HEMOGLOBIN(LOINC 13.0 - g/dl ) 17.5 HEMOGLOBIN 17.5 LAB HEMATOCRIT(LOINC 40.0 - % ) 52.0 HEMATOCRIT 49.5 LAB MCV(LOINC) 81 - 98 fl MCV 84 LAB MCH(LOINC) 27 - 33 pg MCH 30 LAB MCHC(LOINC) 32 - 36 X10 3 MCHC 35 LAB RDW/CV(LOINC) 12.0 - % 15.6 RDW/CV High 16.4 LAB PLATELET(LOINC) 150 - 450 x10EE3/UL PLATELET Low 72 LAB MPV(LOINC) 6.4 - 10.5 fl MPV 8.3 Result Comment: AUTOMATED DIFFERENTIAL LAB NEUT %(LOINC) 46.0 - 76.0 % NEUT % 61.1 LAB LYMPH %(LOINC) 20.0 - 45.0 % LYMPH % 30.2 LAB MONOS %(LOINC) 0.0 - 10.0 % MONOS % 6.6 LAB EO %(LOINC) 0.0 - 7.0 % EO % 1.6 LAB BASO %(LOINC) 0.0 - 2.0 % BASO % 0.5 LAB Lymph #(LOINC) 0.80 - 2.80 x10EE3/U L Lymph # 1.50 LAB Neut #(LOINC) 1.50 - 7.10 x10EE3/U L Neut # 3.00 LAB Monroe #(LOINC) 0.20 - 1.00 x10EE3/U L [place] # 0.30 LAB EO #(LOINC) 0.00 - 0.50 x10EE3/U L EO # 0.10 LAB Baso #(LOINC) 0.00 - 0.10 x10EE3/U L Baso # 0.00 LAB MANUAL DIFF(LOINC) MANUAL DIFF N/A LAB MORPHOLOGY(LOINC ) MORPHOLOGY N/A Result Comment: {CD] Performed By: #### [id number] #### [address] [address] URINALYSIS Collected: 06/24/2017 Status: F Source: [facility] 11:40 PM [facility] REPOSITORY TYPE CODE TESTS RESULT OUT OF REFERENCE UNITS RANGE LAB URINALYSIS (LOINC) URINALYSIS Result Comment: URINALYSIS LAB Specimen Type(LOINC) Specimen Type Clean catch LAB Color(LOINC) NORMAL: YELLOW Color YELLOW LAB Clarity(LOINC) NORMAL: CLEAR Clarity CLEAR LAB ph(LOINC) NORMAL: 5.0-8.0 ph 5 LAB Protein(LOINC) NORMAL: NEGATIVE Protein Abnormal 30 LAB Glucose(LOINC) NORMAL: NORMAL Glucose Abnormal 1000 LAB Ketone(LOINC) NORMAL: NEGATIVE Ketone NEG LAB Bilirubin(LOINC) NORMAL: NEGATIVE Bilirubin NEG LAB Blood(LOINC) NORMAL: NEGATIVE Blood Abnormal 10 LAB Urobilinog(LOINC) NORMAL: NORMAL Urobilinog NORM LAB Sp [place](LOINC) NORMAL: 1.010-1.030 Sp [place] 1.015 LAB Nitrite(LOINC) NORMAL: NEGATIVE Nitrite NEG LAB Leukocytes(LOINC) NORMAL: NEGATIVE Leukocytes NEG LAB Microscopic(LOINC ) Microscopic SEE BELOW Result Comment: MICROSCOPIC LAB Wbc(LOINC) 0-5/hpf Wbc NONE LAB Rbc(LOINC) 0-3/hpf Rbc NONE LAB Casts(LOINC) Casts NONE LAB Crystals(LOINC) Crystals NONE LAB Amorphous(LOINC) Amorphous NONE LAB Bacteria(LOINC) Bacteria NONE LAB Epi Cells(LOINC) Epi Cells NONE LAB Mucous(LOINC) Mucous NONE LAB Yeast(LOINC) Yeast NONE Performed By: #### [id number] #### [place] [address] CMP WITH EGFR Collected: 06/24/2017 Status: F Source: [place] 11:40 PM [facility] REPOSITORY TYPE CODE TESTS RESULT OUT OF RANGE REFERENCE UNITS LAB CMP with eGFR(LOINC) CMP with eGFR Result Comment: COMPREHENSIVE METABOLIC PANEL LAB SODIUM(LOINC) 136 - 145 mmol/l Low SODIUM 131 LAB POTASSIUM(LOINC) 3.5 - 5.1 mmol/L POTASSIUM 3.9 LAB CHLORIDE(LOINC) 98 - 107 mmol/L Low CHLORIDE 96 LAB CO2(LOINC) 21.0 - mmol/L Low 31.0 CO2 20.9 LAB GLUCOSE(LOINC) 74 - 106 mg/dl High Alert GLUCOSE 581 Result Comment: { CALLED TO CHRIS BY LMM @ 0029 { READ BACK BY CHRIS RA 0027 LAB BUN(LOINC) 6 - 20 mg/dl BUN 12 LAB CREATININE(LOINC) 0.7 - 1.3 mg/dl CREATININE 0.9 LAB AST/SGOT(LOINC) 13 - 39 U/L AST/SGOT 22 LAB ALK PHOS(LOINC) 38 - 126 U/L ALK PHOS 101 LAB CALCIUM(LOINC) 8.6 - mg/dl 10.2 CALCIUM 9.4 LAB TOTAL 6.4 - 8.3 g/dl PROTEIN(LOINC) TOTAL PROTEIN 6.8 LAB ALBUMIN(LOINC) 3.4 - 4.8 g/dL ALBUMIN 4.5 LAB GLOBULIN(LOINC) 1.5 - 3.8 G/DL GLOBULIN 2.3 LAB A/G RATIO(LOINC) 0.9 - 1.6 A/G RATIO High 2.0 LAB TOTAL BILI(LOINC) 0.0 - 1.5 mg/dl TOTAL BILI High 1.7 LAB B/C RATIO(LOINC) 0 - 30 ratio B/C RATIO 13 LAB ALT/SGPT(LOINC) 10 - 40 U/L ALT/SGPT High 50 LAB ANION GAP(LOINC) 10 - 20 mmol/L ANION GAP 18 LAB AGE(LOINC) years AGE 47 LAB eGFR(LOINC) 60 - 999 ML/MINUTE eGFR >60 LAB eGFR(AA)(LOINC) 60 - 999 ML/MINUTE eGFR(AA) >60 Result Comment: ACCORDING TO THE NATIONAL KIDNEY DISEASE EDUCATION PROGRAM(NKDE), A NORMAL eGFR IS A VALUE GREATER THAN OR EQUAL TO 60 ML/MIN/1.73 SQ METERS. CHRONIC KIDNEY DISEASE: <60mL/MIN/1.73 SQ METERS KIDNEY FAILURE: <15mL/MIN/1.73 SQ METERS THIS TEST SHOULD ONLY BE USED FOR PATIENTS 18 YEARS OF AGE AND OLDER. Performed By: #### [id number] #### [facility],[address] [place], [place] [id number] LIPASE Collected: 06/24/2017 Status: F Source: [facility] 11:40 PM [facility] TYPE CODE TESTS RESULT OUT OF REFERENCE UNITS RANGE LAB LIPASE(LOIN 18.0 - 51.0 U/L C) High LIPASE 98.0 Performed By: #### [id number] #### [facility],[address] [place], [place] [id number] EMERGENCY DEPARTMENT Observed: 06/24/2017 Status: F Source: [facility] SUMMARY 7:24 PM [facility] EMERGENCY DEPARTMENT SUMMARY NAME NUMBER SEX AGE ADMIT DISC TYPE MED.RECORD# TESSA Arthur [id number] M 47 06/20/17 06/20/17 InderRFeliberto [id number] ROOM:ER-B DATE OF :1970 PHYSICIAN NO.:[id number] PHYSICIAN NAME:E-SIGN CAYETANO STALLWORTH DO PHYSICIAN: HISTORY OF PRESENT ILLNESS: Time of arrival was 0013 hours and time of evaluation was 0035 hours in room #6 in the presence of his . I have seen both of these people in the past. They are very nice people. The patient complained of about feeling just sort of lightheaded and sort of spinning around. He says he feels dehydrated. He states his sugars have been running high. He states they have been running high for some time. I asked him if he has been taking his medications, and he has been taking his Lantus and his customary insulin. He states that he just does not feel all that good. He states he thinks he needs to see a photogrammetric stereo compiler. He has not contacted Dr. Haas. He states he can never see him. He denies any history of cardiac disease. He denies any lung disorders. He states lately he has been feeling like he cannot work. He did not work the last couple of days and requests a work excuse as well. He denies any previous coronary conditions. He denies any urinary symptomatology. He denies any vomiting or diarrhea. He denies any trauma. He denies fever or chills. He did not have the immunization for influenza this year. ALLERGIES: Bactrim. SOCIAL HISTORY: He states he does not smoke. He is . He states he has been working for 14 years out of a [employer] company. PHYSICAL EXAMINATION: On examination, he is seen in room #6 in the presence of his . He has good eye contact. Vital signs: 97.7 temporal scanning, 86 brachial pulse, 18 respirations, 130/80 blood pressure, and 95% saturation. Romberg is negative. Past-Pointing is negative. Face is symmetric. Speech is precise. Tongue is midline. Hand grasps are equal. Rapid alternation motions of his arms and hands are normal. Pupils are equal, round, and reactive 3.5 mm. Tympanic membrane, canals, and pinnae normal. Pharynx is symmetric. No stridor. No hoarseness. No injection. Neck is supple. There is no JVD at 20 degrees. He has no anterior or posterior axillary nodes. Lungs are clear. There is no expiratory wheeze, rales, rhonchi, or paradoxical chest motions. Heart is regular rate and rhythm without murmur. PMI is the left breast. He has good radial pulses, dorsalis pedis pulses. No peripheral edema. Skin is warm and dry. His abdomen is soft without any discomfort. His vital signs remained stable here in the emergency room. DIAGNOSTIC DATA: His initial sugar here was 357, but then on his laboratories it was 325, and then we later checked his glucose bedside it was 279, and final check of his glucose was 220. Urine was normal. Troponin was negative. CBC was normal. H&H was 16 and 45, slightly elevated with 3 bands, which is normal, otherwise normal differential. His lipase was normal. Creatinine was 1.[address] of his head was negative. EMERGENCY DEPARTMENT COURSE AND TREATMENT: We checked his laboratories first, and then gave him liter of fluid, and checked his sugar again. His sugars went from 357 with fluids down to 220 without anything but fluids, Ativan, Antivert was given IV, and with that his dizziness resolved. He was feeling much better. DIAGNOSES: 1. Diabetes, hyperglycemia. 2. Dehydration. PLAN/DISPOSITION: We told the patient he really needs to follow up with Dr. Haas in the office. A work excuse was provided. The patient states he was feeling much better at the time of discharge. He was discharged ambulatory from the emergency room. His final vital signs were 77 pulse, 129/94 blood pressure, 97% saturation. D: Cayetano Stallworth MD TD: 05:34 JOB #: [id number] Electronically signed by: E-SIGN CAYETANO STALLWORTH DO 06/24/17 19:24 Transcribed by: am 06/21/2017 21:24 ELECTRONICALLY SIGNED BY: E-SIGN CAYETANO STALLWORTH DO 06/24/17 19:24 PROGRESS Observed: 06/21/2017 Status: COMPLETED Source: [place] 7:38 AM [facility] REPOSITORY O ID: [id number] Author: Nikko (Shanelle) SHANELLE Dukes Service: (none) Author Type: Nurse Specialist Type: Progress Notes Filed: 06/21/2017 9:50 AM Note Text: OUTPATIENT VISIT DATE June 21, 2017 OUTPATIENT VISIT TYPE ESTABLISHED PRIMARY CARE PHYSICIAN: Cynthia Haas MD CHIEF COMPLAINT: Patient presents with: High Blood Sugar History of Present Illness: Titi Zarate is a 47 year old male He has been seen in the past for ACTIVE PROBLEM LIST Uncontrolled Type II Diabetes Mellitus With Nephropathy (Hcc) Hyperbilirubinemia Family History of Colon Cancer Benign Colonic Polyp Diabetic Nephropathy (Hcc) Daytime Somnolence Thrombocytopenia (Hcc) Fatty Metamorphosis of Liver He was seen by Dr. Jefferson on 05/10/2017. His notes indicate Mr. Zarate was seen in [facility] ER for cough on May 06. He was subsequently seen at [facility] ER on 05/07/17 due to cough, SOB, wheezing, chills and sweats worsened. He was diagnosed with pneumonia. He was treated with Zithromax 250 mg, 4 tablets. which pt picked up prior to coming into this appointment. He reported no fever, did have chills. Using qmeo-ras-etnzskd NyQuil which helped somewhat. Intermittent use of inhaler. Reported blood sugars running around 205. He's had his pneumonia shot. He was then seen 05/21/[address] Gilman.Treated for respiratory infection, doxycycline and tessaolon perles per Dr. Gilman. Negative CXR. He presents today reporting that blood sugars continue to run high. He reports average for the last 2 weeks has been 360. He does not bring his meter with him today. He has been checking at home. Reports ran out of test strips and didn't check this morning. He reports blurry vision dizziness weakness and difficulty standing upright for long periods and feeling dehydrated. He reports being seen yesterday at [facility] and being treated for vertigo. Records are not available at the time of this visit. No changes have been made to diabetes medications since last seen at [facility]. Patient's last HgA1C was Hemoglobin A1C (%) Date Value 11/17/2016 6.3 09/10/2015 8.1 ) PAST MEDICAL HISTORY Diagnosis Date - Abdominal tenderness, left upper quadrant - Anxiety - Depression - Diabetes mellitus type II 2010 - Diabetic nephropathy (HCC) - Hypercholesteremia - Hypertension PAST SURGICAL HISTORY Procedure Laterality Date - COLONOSCOP W/ OR W/O [facility] SPE[facility] 09-13-11 Repeat in 3 years () - LAP CHOLECYSTECT/CHOLANGIOGRAPHY 07/09/08 - PAST SURGICAL HISTORY OF right knee - PAST SURGICAL HISTORY OF right shoulder blade - REPAIR ING HERNIA,5+Y/O,REDUCIBL Hernia repair, inguinal FAMILY HISTORY Problem Relation Age of Onset - Cancer Paternal Grandfather prostate - Cancer Maternal Grandfather - Hypertension Maternal Aunt - Diabetes Mother - Diabetes Maternal Aunt - Colon Cancer Mother at age 61 Social History Substance Use Topics - Smoking status: Never Smoker - Smokeless tobacco: Never Used - Alcohol use Yes Comment: beer ALLERGIES: ALLERGIES Allergen Reactions - Bactrim [Sulfametho* Rash - Gentamycin [Gentami* Other: See Comments Eye irritation MEDICATIONS meclizine (ANTIVERT) 25 mg tab Take 25 mg by mouth three times daily. blood sugar diagnostic (BLOOD GLUCOSE TEST) test strip Test blood sugar(s) 2 times daily. Dx: 250.02. Insulin: Yes Lancets (ACCU-CHEK MULTICLIX LANCET) lancets Test blood sugar four (4) times daily and as needed. DX 250.02, Insulin-Yes insulin lispro (HUMALOG KWIKPEN) 100 unit/mL inpn Inject 44 units breakfast, 48 units lunch, 42 units with dinner. Sodium Chloride 0.9 % soln 1-2 L one time only for 1 dose. insulin glargine (LANTUS SOLOSTAR) 100 unit/mL (3 mL) inpn Inject 47 Units subcutaneously twice daily. Morning and evening budesonide (PULMICORT FLEXHALER) 180 mcg/actuation aepb Inhale 2 Puffs as instructed twice daily. doxycycline monohydrate 100 mg tablet Take 1 tablet by mouth twice daily. albuterol HFA (PROAIR HFA) 90 mcg/actuation inhaler Inhale 2 Puffs as instructed every 4 hours as needed. COMPOUNDED PRESCRIPTION Diabetic ShoesDx: E11.4;E11.21 citalopram (CELEXA) 20 mg tablet Take 1 tablet by mouth once daily. atorvastatin (LIPITOR) 20 mg tablet Take 1 tablet by mouth daily at bedtime. lisinopril (ZESTRIL, PRINIVIL) 10 mg tablet Take 1 tablet by mouth once daily. insulin needles, DISPOSABLE, (BD INSULIN PEN NEEDLE UF) 31 X 5/16 ndle Use one for each dose, 7 per day/. Dx: 250.02. Insulin: yes. Blood-Glucose Meter monitoring kit Daily glucose check. Dx 250.00 REVIEW OF SYSTEMS: GENERAL:+ Weakness Negative for: Weight loss or gain, Fever or Chills, and Sleep difficulties. Physical Examination: BP 102/80 Pulse 92 Resp 16 Wt 203 lb (92.1kg) Extended Vitals not filed for this encounter. General appearance: Ill appearing, alert, in no acute distress, well-hydrated, well nourished. Skin: Skin color, texture, turgor normal, no suspicious rashes or lesions Neck: Supple, no adenopathy; thyroid symmetric, normal size, no bruits Lungs: Lungs clear to auscultation. No wheezing, rhonchi, rales Heart: RRR without murmur, gallop, or rubs. Abdomen: Abdomen soft, non-tender. Bowel sounds normal. No masses, organomegaly Extremities: No edema, skin discoloration, clubbing or cyanosis. Good capillary refill. Peripheral pulses: Normal Neuro: Gait normal. Sensation grossly intact. Reviewed chart, outside records, tests I personally interviewed, confirmed and edited the above information if obtained by others. TESTING: Glucose (mg/dL) Date Value 12/20/2016 268 Potassium (mmol/L) Date Value 12/20/2016 3.6 Sodium (mmol/L) Date Value 12/20/2016 138 Chloride (mmol/L) Date Value 12/20/2016 97 CO2 (mmol/L) Date Value 12/20/2016 22 Creatinine (mg/dL) Date Value 12/20/2016 0.78 BUN (mg/dL) Date Value 12/20/2016 13 Anion Gap (mmol/L) Date Value 12/20/2016 19 Calcium (mg/dL) Date Value 12/20/2016 9.3 Glucose (mg/dL) Date Value 12/20/2016 268 Potassium (mmol/L) Date Value 12/20/2016 3.6 Sodium (mmol/L) Date Value 12/20/2016 138 Chloride (mmol/L) Date Value 12/20/2016 97 CO2 (mmol/L) Date Value 12/20/2016 22 Creatinine (mg/dL) Date Value 12/20/2016 0.78 BUN (mg/dL) Date Value 12/20/2016 13 Anion Gap (mmol/L) Date Value 12/20/2016 19 Calcium (mg/dL) Date Value 12/20/2016 9.3 Protein, Total (g/dL) Date Value 12/20/2016 6.8 Albumin (g/dL) Date Value 12/20/2016 4.6 Bilirubin, Total (mg/dL) Date Value 12/20/2016 2.4 Alkaline Phosphatase (U/L) Date Value 12/20/2016 85 AST (U/L) Date Value 12/20/2016 28 ALT (U/L) Date Value 12/20/2016 46 Hemoglobin (g/dL) Date Value 11/17/2016 15.4 Hematocrit (%) Date Value 11/17/2016 44.0 WBC (k/uL) Date Value 11/17/2016 5.21 Cholesterol, Total (mg/dL) Date Value 11/17/2016 106 HDL Cholesterol (mg/dL) Date Value 11/17/2016 39 LDL Cholesterol (mg/dL) Date Value 11/17/2016 43 Triglyceride (mg/dL) Date Value 11/17/2016 121 Hemoglobin A1C Date Value Ref Range Status 11/17/2016 6.3 (H) 4.3 - 5.6 % Final Comment: Citizen Of [place] Diabetes Association guidelines indicate that patients with HgbA1c in the range 5.7-6.4% are at increased risk for development of diabetes, and intervention by lifestyle modification may be beneficial. HgbA1c greater or equal to 6.5% is considered diagnostic of diabetes. 09/10/2015 8.1 (H) 4.3 - 5.6 % Final Comment: Citizen [place] Diabetes Association guidelines indicate that patients with HgbA1c in the range 5.7-6.4% are at increased risk for development of diabetes, and intervention by lifestyle modification may be beneficial. HgbA1c greater or equal to 6.5% is considered diagnostic of diabetes. 08/10/2014 8.2 (H) 4.0 - 6.0 % Final Comment: Citizen [place] Diabetes Association guidelines indicate that patients with HgbA1c in the range 5.7-6.4% are at increased risk for development of diabetes, and intervention by lifestyle modification may be beneficial. HgbA1c greater or equal to 6.5% is considered diagnostic of diabetes. 03/09/2014 7.9 (H) 4.0 - 6.0 % Final Comment: Citizen [place] Diabetes Association guidelines indicate that patients with HgbA1c in the range 5.7-6.4% are at increased risk for development of diabetes, and intervention by lifestyle modification may be beneficial. HgbA1c greater or equal to 6.5% is considered diagnostic of diabetes. 08/24/2013 8.8 (H) 4.0 - 6.0 % Final Comment: Citizen [place] Diabetes Association guidelines indicate that patients with HgbA1c in the range 5.7-6.4% are at increased risk for development of diabetes, and intervention by lifestyle modification may be beneficial. HgbA1c greater or equal to 6.5% is considered diagnostic of diabetes. Ejection Fraction: No results found IMPRESSION: Mr. Zarate is a 47 year old man presents with symptoms of uncontrolled BS, notes last two weeks average BS 360. Reports weakness, dizziness, blurry vision, polydipsia and polyuria. After my examination and review of data, I make the following recommendations. PLAN AND RECOMMENDATIONS: 1. 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 Dehydration - ICD9: 276.51, ICD10: E86.0 - BLOOD SUGAR DIAGNOSTIC STRIPS - LANCETS - INSULIN LISPRO 100 UNIT/ML SUBCUTANEOUS PEN - IV START - SPECIFY - IV DISCONTINUE - SALINE LOCK DISCONTINUE - SODIUM CHLORIDE 0.9 % SOLUTION - INSULIN GLARGINE 100 UNIT/ML (3 ML) SUBCUTANEOUS PEN - CONSULT TO PHARMACY Case discussed with Dr. De Souza. ER for infusion of fluids here advised. He prefers to have IV NS infusion here. Advised the following: Increase Lantus insulin dose. Stop taking Lantus 90 units in the evening. Start taking Lantus 47 units in the morning and 47 units in the evening Continue with meal time insulin unchanged. Check blood sugars fasting and at mealtime. Bring meter to your next visit. Schedule SMA for diabetes. Make appt with Ruchi Zaragoza Pharm D one week Make appointment with endocrinlogist Make appt to establish with primary, Dr. De Souza Advised to go to ER if develops chest pain, shortness of breath, or severe worsening of symptoms. Discussed risks, benefits, alternatives, and potential side effects of medications. Mr. Zarate expressed understanding and agreed with the plan. Mr. Zarate was discharged improved status SHANELLE Corral CNCO Observed: 06/21/2017 Status: COMPLETED Source: [place] 12:00 AM [facility] REPOSITORY Letter Text Department of Internal Medicine [address] [place] [address] 06/21/2017 Titi Sandhya Zarate CCF# [id number] [facility] 05/21 [place] [address] TO WHOM IT MAY CONCERN: This is to confirm that Titi Zarate had an appointment and was seen at the [facility] in the Department of Internal Medicine by SHANELLE Corral on 06/21/2017. Sincerely yours, Electronically Signed SHANELLE Corral CNPN Observed: 06/21/2017 Status: COMPLETED Source: [place] 12:00 AM [facility] REPOSITORY Telephone (FPWADS) TITI ZARATE ([id number]) 1970 M Date Time Provider Department 06/21/17 CYNTHIA HAAS [facility] During your visit today, we recorded the following information about you: David Mae 06/21/2017 10:09 AM Signed Received 06/20/17 CT abd/pelvis and CT Brain from [place]. Placed in pcps inbox for review. Route to [place] for scanning. David Mae 06/26/2017 2:53 PM Signed Sent to scanning. Allergies As of Date: 06/21/2017 Noted Allergy Reaction BACTRIM (SULFAMETHOXAZOLE) 01/28/2013 2 - Rash GENTAMYCIN (GENTAMICIN) 09/24/2013 14 - Other: See Comments Comments: Eye irritation Date Reviewed: 06/21/2017 Reviewed by: Angela Patrick LPN - Fully Assessed Reason for Visit: Radiology Reports [Other] Cmt: Jennifer 06/20/17 Prescriptions as of 06/21/2017 Sig: MECLIZINE 25 MG TABLET Take 25 mg by mouth three basil* BLOOD SUGAR DIAGNOSTIC STRIPS Test blood sugar(s) 2 times d* LANCETS Test blood sugar four (4) basil* SODIUM CHLORIDE 0.9 % SOLUTION 1-2 L one time only for 1 dos* X INSULIN LISPRO 100 UNIT/ML JONES* Inject 44 units breakfast, 48* X INSULIN GLARGINE 100 UNIT/ML * Inject 47 Units subcutaneousl* BUDESONIDE 180 MCG/ACTUATION * Inhale 2 Puffs as instructed * DOXYCYCLINE MONOHYDRATE 100 M* Take 1 tablet by mouth twice * ALBUTEROL SULFATE HFA 90 MCG/* Inhale 2 Puffs as instructed * COMPOUNDED PRESCRIPTION Diabetic Shoes Dx: E11.4;E11* CITALOPRAM 20 MG TABLET Take 1 tablet by mouth once d* ATORVASTATIN 20 MG TABLET Take 1 tablet by mouth daily * LISINOPRIL 10 MG TABLET Take 1 tablet by mouth once d* PEN NEEDLE, DIABETIC 31 GAUGE* Use one for each dose, 7 per * BLOOD-GLUCOSE METER KIT Daily glucose check. Dx 250.* Problem List As Of Date 06/21/2017 Noted Resolved Uncontrolled type II diabetes mellitus with nep*INVALID FOR* More... Hyperbilirubinemia [E80.6] INVALID FOR* More... 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 Type: ER Account: [id number] Location: 052 Ordering: DR. CAYETANO STALLWORTH Exam Date: 06/20/2017/4:19 Family Phys: CYNTHIA HAAS Charge Code: [id number] Physician: [place] Order #: [id number] DLP Dose#: 57.50 PROCEDURE: CT BRAIN WITHOUT CONTRAST COMPARISON: [facility], CT, BRAIN W/O CON, 10/03/2016, 20:34. INDICATIONS: Dizzy TECHNIQUE: CT images were obtained without contrast material. All CT scans at this facility use dose modulation, iterative reconstruction, and/or weight based dosing when appropriate to reduce radiation dose to as low as reasonably achievable. IV CONTRAST: No IV contrast used,0ml TOTAL DOSE: 57.50 CTDIvol(mGy) FINDINGS: CEREBRUM: No edema, hemorrhage, mass, acute infarction, or inappropriate atrophy. CEREBELLUM: No edema, hemorrhage, mass, acute infarction, or inappropriate atrophy. BRAINSTEM: No edema, hemorrhage, mass, acute infarction, or inappropriate atrophy. CSF SPACES: Ventricles, cisterns, and sulci are appropriate for age. No hydrocephalus, subarachnoid hemorrhage, or mass. SKULL: No mass or other significant visible lesion. SINUSES: There is a small amount of fluid in the left sphenoid sinus. ORBITS: Limited views are unremarkable. OTHER: Negative. CONCLUSION: No acute disease. No significant change has occurred. Small amount of fluid is present in the left sphenoid sinus. Dictated by: Claudia Abbasi MD on 06/20/2017 at 8:31 Continued Report - Page 2 of 2 Patient: TITI ZARATEFeliberto Phone#: : 1970 Age: 47 Gender: M Pt. Type: ER Account: [id number] Location: 052 Ordering: DR. CAYETANO STALLWORTH Exam Date: 06/20/2017/4:19 Family Phys: CYNTHIA HAAS Charge Code: [id number] Physician: [place] Order #: [id number] DLP Dose#: 57.50 Approved by: Claudia Abbasi MD on 06/20/2017 at 8:31 URINALYSIS Collected: 06/20/2017 Status: F Source: [place] 3:15 AM [facility] REPOSITORY TYPE CODE TESTS RESULT OUT OF REFERENCE UNITS RANGE LAB URINALYSIS (LOINC) URINALYSIS Result Comment: URINALYSIS LAB Specimen Type(LOINC) Specimen Type Void LAB Color(LOINC) NORMAL: YELLOW Color YELLOW LAB Clarity(LOINC) NORMAL: CLEAR Clarity clear LAB ph(LOINC) NORMAL: 5.0-8.0 ph 6 LAB Protein(LOINC) NORMAL: NEGATIVE Protein 15 Abnormal LAB Glucose(LOINC) NORMAL: NORMAL Glucose Abnormal 1000 LAB Ketone(LOINC) NORMAL: NEGATIVE Ketone NEG LAB Bilirubin(LOINC) NORMAL: NEGATIVE Bilirubin NEG LAB Blood(LOINC) NORMAL: NEGATIVE Blood NEG LAB Urobilinog(LOINC NORMAL: ) NORMAL Urobilinog NORM LAB Sp NORMAL: [place](LOINC) 1.010-1.030 Sp [place] 1.015 LAB Nitrite(LOINC) NORMAL: NEGATIVE Nitrite NEG LAB Leukocytes(LOINC NORMAL: ) NEGATIVE Leukocytes NEG LAB Microscopic(LOIN C) Microscopic NOT INDICATED Performed By: #### [id number] #### [facility],[address] [place] [address] DRUG SCREEN URINE Collected: 06/20/2017 Status: F Source: [place] MEDIC 3:15 AM [facility] REPOSITORY TYPE CODE TESTS RESULT OUT OF REFERENCE UNITS RANGE LAB DRUG SCREEN URINE MEDIC(LOINC) DRUG SCREEN URINE MEDIC Result Comment: DRUG SCREEN - URINE LAB PCP(LOINC) PCP NEG LAB COCAINE(LOINC) COCAINE NEG LAB OPIATES(LOINC) OPIATES NEG LAB AMPHETAMINES(LOINC ) AMPHETAMINES NEG LAB B-DIAZEPINES(LOINC ) B-DIAZEPINES NEG LAB TCA(LOINC) TCA NEG LAB METHADONE(LOINC) METHADONE NEG LAB BARBITURATES(LOINC ) BARBITURATES NEG LAB THC(LOINC) THC NEG Result Comment: PATIENTS RECEIVING PROTON PUMP INHIBITORS MAY DEMONSTRATE FALSE POSITIVE THC/CANNABINOID RESULTS. AN ALTERNATIVE CONFIRMATORY METHOD SHOULD BE CONSIDERED TO VERIFY POSITIVE RESULTS. Performed By: #### [id number] #### [facility],[address] [place] [address] Observed: 06/20/2017 Status: F Source: [place] CULTURE URINE 3:15 AM [facility] REPOSITORY CULTURE URINE _URINE CULTURE_ M I C R O B I O L O G Y R E P O R T FINAL Antimicrobial Susceptibility and Organism Identification Report Specimen Number : [id number] Requested : 06/20/17 Specimen Source : URINE Collected : 06/20/17 03:15 [place] of Isolation : Emergency Room Received : 06/20/17 03:15 Requesting Physician : FEDERICA Mon Patient/Specimen Tests and Comments Specimen Comments FINAL REPORT: NO GROWTH AT 48 HOURS Tech : Source : URINE ID # : [id number] FINAL Report Date : / / : Collected : 06/20/17 03:15 06/22/17.1309.BKO. 06/21/17.1021.JLN. 06/22/17.1309.BKO.COMPLETE Performed By: #### [id number] #### [place] [address] CT ABDOMEN/PELVIS W Observed: 06/20/2017 Status: F Source: [facility] 3:01 AM [place] [address] Patient: TITI ZARATE Phone#: : 1970 Age: 47 Gender: M Pt. Type: ER Account: [id number] Location: [facility] Ordering: DR. CAYETANO STALLWORTH Exam Date: 06/20/2017/2:46 Family Phys: CYNTHIA HAAS Charge Code: [id number] Physician: PHYSICIAN [place] Order #: [id number] DL Dose#: 16.00 PROCEDURE: CT ABDOMEN/PELVIS WITH CONTRAST COMPARISON: [facility], CT, ABDOMEN/PELVIS W CON, 10/10/2016, 13:35. INDICATIONS: Pain TECHNIQUE: After obtaining the patient's consent, CT images were created with non-ionic intravenous contrast material. All CT scans at this facility use dose modulation, iterative reconstruction, and/or weight based dosing when appropriate to reduce radiation dose to as low as reasonably achievable. IV CONTRAST: Omnipaque 350,80ml TOTAL DOSE: 16.00 CTDIvol(mGy) FINDINGS: LIVER: Fatty changes of liver are present. There is no evidence of focal abnormality. BILIARY: The gallbladder is absent. PANCREAS: Normal. No lesion, fluid collection, ductal dilatation, or atrophy. SPLEEN: The spleen is 17 cm in length unchanged from prior exam. KIDNEYS: Normal. No mass, obstruction, or calcification. ADRENALS: Normal. No mass or enlargement. AORTA/VASCULAR: Normal. No aneurysm or dissection. RETROPERITONEUM: Normal. No mass or adenopathy. BOWEL/MESENTERY: Scattered diverticula are present. No visible mass, obstruction, or bowel wall thickening. ABDOMINAL WALL: Normal. No mass or hernia. URINARY BLADDER: Normal. No visible focal wall thickening, lesion, or calculus. PELVIC NODES: Normal. No adenopathy. PELVIC ORGANS: Normal. No visible mass. Pelvic organs appropriate for patient age. Continued Report - Page 2 of 2 Patient: TITI ZARATE Phone#: : 1970 Age: 47 Gender: M Pt. Type: ER Account: [id number] Location: 052 Ordering: DR. CAYETANO STALLWORTH Exam Date: 06/20/2017/2:46 Family Phys: CYNTHIA HAAS Charge Code: [id number] Physician: PHYSICIAN [place] Order #: [id number] DLP Dose#: 16.00 BONES: Vertebral body osteophytes are present. LUNG BASES: Normal. No visible pulmonary or pleural disease. OTHER: Negative. CONCLUSION: 1. There is no evidence of acute abdominal or pelvic abnormality. 2. Splenomegaly unchanged from prior exam. Dictated by: Claudia Abbasi MD on 06/20/2017 at 9:32 Approved by: Claudia Abbasi MD on 06/20/2017 at 9:32 TROPONIN Collected: 06/20/2017 Status: F Source: [facility] 1:10 AM [facility] REPOSITORY TYPE CODE TESTS RESULT OUT OF REFERENCE UNITS RANGE LAB TROPONIN 0.00 - 0.05 ng/ml I(LOINC) TROPONIN I 0.01 Result Comment: Elevated troponin (above the 99th percentile) usually indicates myocardial ischemia. Results must be interpreted within the clinical setting. 1.Non-ischemic pathology can also cause elevated troponin levels (e.g., acute pulmonary embolism, myocarditis, pericarditis, heart failure, intracranial injury, rhabdomyolisis, sepsis, shock and renal insufficiency). 2.Approximately 1% of healthy adults have elevated troponin levels. 3.Analytical false positive results rarely occur(due to multiple interferences such as heterophile antibodies). Performed By: #### [id number] #### [facility],[address] [place] [address] CMP WITH EGFR Collected: 06/20/2017 Status: F Source: [place] 1:10 AM [facility] REPOSITORY TYPE CODE TESTS RESULT OUT OF RANGE REFERENCE UNITS LAB CMP with eGFR(LOINC) CMP with eGFR Result Comment: COMPREHENSIVE METABOLIC PANEL LAB SODIUM(LOINC) 136 - 145 mmol/l SODIUM Low 132 LAB POTASSIUM(LOINC) 3.5 - 5.1 mmol/L POTASSIUM 3.6 LAB CHLORIDE(LOINC) 98 - 107 mmol/L CHLORIDE Low 97 LAB CO2(LOINC) 21.0 - mmol/L 31.0 CO2 27.5 LAB GLUCOSE(LOINC) 74 - 106 mg/dl GLUCOSE High 325 LAB BUN(LOINC) 6 - 20 mg/dl BUN 15 LAB CREATININE(LOINC) 0.7 - 1.3 mg/dl CREATININE 1.1 LAB AST/SGOT(LOINC) 13 - 39 U/L AST/SGOT 19 LAB ALK PHOS(LOINC) 38 - 126 U/L ALK PHOS 81 LAB CALCIUM(LOINC) 8.6 - mg/dl 10.2 CALCIUM 8.9 LAB TOTAL 6.4 - 8.3 g/dl PROTEIN(LOINC) TOTAL Low PROTEIN 6.1 LAB ALBUMIN(LOINC) 3.4 - 4.8 g/dL ALBUMIN 4.0 LAB GLOBULIN(LOINC) 1.5 - 3.8 G/DL GLOBULIN 2.1 LAB A/G RATIO(LOINC) 0.9 - 1.6 A/G High RATIO 1.9 LAB TOTAL BILI(LOINC) 0.0 - 1.5 mg/dl TOTAL High BILI 1.8 LAB B/C RATIO(LOINC) 0 - 30 ratio B/C RATIO 14 LAB ALT/SGPT(LOINC) 10 - 40 U/L ALT/SGPT High 44 LAB ANION GAP(LOINC) 10 - 20 mmol/L ANION GAP 11 LAB AGE(LOINC) years AGE 47 LAB eGFR(LOINC) 60 - 999 ML/MINUTE eGFR >60 LAB eGFR(AA)(LOINC) 60 - 999 ML/MINUTE eGFR(AA) >60 Result Comment: ACCORDING TO THE NATIONAL KIDNEY DISEASE EDUCATION PROGRAM(NKDE), A NORMAL eGFR IS A VALUE GREATER THAN OR EQUAL TO 60 ML/MIN/1.73 SQ METERS. CHRONIC KIDNEY DISEASE: <60mL/MIN/1.73 SQ METERS KIDNEY FAILURE: <15mL/MIN/1.73 SQ METERS THIS TEST SHOULD ONLY BE USED FOR PATIENTS 18 YEARS OF AGE AND OLDER. Performed By: #### [id number] #### [address] [address] LIPASE Collected: 06/20/2017 Status: F Source: [facility] 1:10 AM [facility] REPOSITORY TYPE CODE TESTS RESULT OUT OF REFERENCE UNITS RANGE LAB LIPASE(LOIN 18.0 - 51.0 U/L C) High LIPASE 55.0 Performed By: #### [id number] #### [address] [address] CBC Collected: 06/20/2017 Status: F Source: [facility] 1:10 [facility] REPOSITORY TYPE CODE TESTS RESULT OUT OF RANGE REFERENCE UNITS LAB CBC(LOINC) CBC Result Comment: CBC-COMPLETE BLOOD COUNT LAB WBC(LOINC) 4.5 - 10.8 x 10EE3/UL WBC 6.0 LAB RBC(LOINC) 4.50 - x 10EE6/UL 6.00 RBC 5.37 LAB HEMOGLOBIN(LOINC) 13.0 - g/dl 17.5 HEMOGLOBIN 16.0 LAB HEMATOCRIT(LOINC) 40.0 - % 52.0 HEMATOCRIT 45.6 LAB MCV(LOINC) 81 - 98 fl MCV 85 LAB MCH(LOINC) 27 - 33 pg MCH 30 LAB MCHC(LOINC) 32 - 36 X10 3 MCHC 35 LAB RDW/CV(LOINC) 12.0 - % 15.6 RDW/CV 14.9 LAB PLATELET(LOINC) 150 - 450 x10EE3/UL PLATELET Low 95 LAB MPV(LOINC) 6.4 - 10.5 fl MPV 7.3 Result Comment: AUTOMATED DIFFERENTIAL LAB MANUAL DIFF(LOINC) MANUAL DIFF SEE BELOW LAB BANDS(LOINC) 0 - 5 % BANDS 3 LAB SEGS(LOINC) 50 - 70 % SEGS 64 LAB LYMPH(LOINC) 20 - 40 % LYMPH 25 LAB MONOS(LOINC) 0 - 8 % MONOS 7 LAB EO(LOINC) 0.0 - 4.0 % EO 1.0 LAB CELL COUNT(LOINC) CELL COUNT 100 LAB MORPHOLOGY(LOINC) MORPHOLOGY REVIEWED Result Comment: {CD] Performed By: #### [id number] #### [facility],[address] [place] [address] ALLERGIES ALLERGIES DATE TYPE / NAME / CODE REACTION SEVERITY SOURCE CODE 06/03/2018 Drug sulfamethoxazole/F0060 Hives Unknown Chad Allergy/41 02854(RXNORM) [facility] [id number]([facility] [place]) Repository 06/03/2018 Drug trimethoprim/[id number] Hives Unknown Gay Allergy/41 3(RXNORM) [facility] [id number]([facility] [place]) Repository 09/24/2013 DRUG GENTAMICIN OTHER: SEE C [address] Main [id number]([facility] [place]) Repository 01/28/2013 DRUG SULFAMETHOXAZOLE RASH [facility]/[address] [place] [address] Main [id number]([facility]) Repository Drug BACTRIM/[id number](RXNOR Moderate Rene Pomerene Allergy/41 M) (Severity [facility] [id number]([facility] (Qualifier Repository Value) ENCOUNTERS ENCOUNTERS ADMIT/DISCHARGE ACCOUNT ADMITTING ENCOUNTER LOCATION SOURCE NUMBER CLASS 06/06/2018/06/06/19 [id number] Ambulatory Chad Gay 19 [facility] ing:SDCRoom: Repository AC02 05/30/2018 [id number] [facility] Repository 05/26/2018 [id number] RUMA, Ambulatory [facility] Repository 04/15/2018/04/15/20 [id number] LUCIA, Emergency [address] [place] [address] SIMON Anguiano oom: ERBed: [place] [facility] Repository 04/03/2018/04/03/20 [id number] RYAN, Ambulatory R[facility] 18 [facility] Repository 03/04/2018/03/04/20 [id number] RUMA, Ambulatory [facility] 18 [facility] Repository 03/04/2018/03/04/20 [id number] RUMA, [facility] 18 [facility] Repository 03/03/2018/03/03/20 [id number] KYLER, Emergency [address] [place] [address] JACKIE wanom: ERBed: A [facility] Repository 02/25/2018/02/26/20 [id number] Emergency Gay Gay[address] ing:ED Repository 01/07/2018/01/08/20 [id number] Emergency Gay[address] ing:ED Repository 01/07/2018/01/10/20 [id number] Ambulatory [address] Repository 01/06/2018/01/07/20 [id number] RUMA, Ambulatory [facility] 09/24/2017/09/25/[id number] RAJ BARNES [facility] [place] [address] C oom: ERBed: D [facility] Repository 07/30/2017/07/31/19 [id number] Ambulatory [address] Repository 06/26/2017/06/26/19 [id number] Ambulatory [address] Repository 06/26/2017/06/27/19 [id number] Ambulatory [address] Repository 06/24/2017/06/25/19 [id number] FEDERICA, Emergency [facility] [place] [address] 18 CAYETANO DO oom: ERBed: [facility] Repository 06/21/2017/06/25/19 [id number] Ambulatory [address] Repository 06/20/2017/06/20/19 [id number] [place] Emergency [address] [place] [address] CAYETANO DO oom: ERBed: B [facility] Repository PAYERS PAYERS ENCOUNTER GUARANTOR PAYER SUBSCRIBER SOURCE 06/06/2018 TITI Arthur Primary TITI [id number] 1/2 W Insurance:SUMMA FETZERDOB: [facility] Number: [id number] [id number] [facility] , [place] [address]Jyp: Date:6759-96-20LG BOX [facility]0[place], [place] ([place]) [address]WP: 06/06/2018 Secondary NOT GIVENUNK Gay Insurance:SELF PAY [facility] Number: Effective Repository Date:2018-05-26 05/30/2018 TITI Arthur Primary TITI Tyler FETZERDOB: Insurance:SUMMACARE FETZERDOB: [facility] [id number] [facility] 05/21 [facility] 3137 05/21 [facility] [place] Number: [facility] [id number] [facility] Date:Plan Name: , [place] [id number] [place], [place] [address]Bsm: () 05/26/2018 TITI Arthur Primary TITI López Pomerene FETZERDOB: Insurance:SUMMACAREPol FETZERDOB: [facility] Number: [id number] [facility] 05/21 [facility] [id number] 05/21 [facility] [place] Date:5414-62-98[facility] Name: , [place] [address] [facility] [address]Sbr: () 04/15/2018 TITI López Pomerene FETZERDOB: Insurance:SUMMACARE FETZERDOB: [facility] [id number] [facility] 05/21 [facility] 05/21 [facility] Number: STFR[place]ET[place], [place] [address]Brq: [id number] , [place] [address] Date:Plan Name:S2 () 04/03/2018 TITI López Pomerene FETZERDOB: Insurance:SUMMACARE FETZERDOB: [facility] [id number] [facility] 05/21 [facility] 05/21 [facility] Repository [facility] Number: STFRMANDI [place], [place] [address]Lue: [id number] , [place] [address] Date:Plan Name:S2 () 03/04/2018 TITI Arthur Rene Pomerene FETZERDOB: Insurance:UNITED FETZERDOB: [facility] COMMERCIAL [id number] Hospital 1/2 [facility] Repository [facility] Number: STSByron [place] [address]Ixe: [id number] [id number] Date:Plan Name:U1 () 03/03/2018 TITI Arthur Primary TITI C Rene Jennifer FETZERDOB: Insurance:SUMMACARE FETZERDOB: [facility] [id number] [facility] [id number] Hospital 1/2 [facility] 1/2 W [facility] Number: UMA [place] [address]Phm: [id number] , [place] [address] Date:Plan Name: () 02/25/2018 TITI Arthur Primary TITI Arthur Gay [id number] 1/2 W Insurance:SUMMA FETZERDOB: [facility] Number: [id number] [id number] Repository , [place] [address]Gyj: Date:9583-95-39[address], [place] () [address]NF: 02/25/2018 Secondary NOT GIVENUNK Chad Insurance:SELF PAY [facility] Number: Effective Repository Date:2018-02-25 01/07/2018 TITI Arthur Primary TITI Arthur Chad [id number] 1/2 W [facility] FETZER[facility]: [place] [id number] [id number] Number: Repository , [place] [address]Kiw: [id number] Date:4164-54-68CE BOX () [place], [place] [address]DX: 01/07/2018 Secondary NOT GIVENUNK Chad Insurance:SELF PAY [facility] Number: Effective Repository Date:2018-01-07 01/06/2018 TITI Arthur Primary TITI Sandhya Rene Jungne FETZERDOB: Insurance:UNITED FETZERDOB: [facility] [id number] [facility] 1/2 [facility] Repository [place] Number: [place] [address]Qcn: [id number] [id number] Date:Plan Name:U1 () 09/24/2017 TITI Arthur Primary TITI C Rene Pomerene FETZERDOB: Insurance:UNITED FETZERDOB: [facility] [id number] [facility] 1/2 [facility] W Number: STSHRByron SNIDER MYLES [id number] [id number] [place] Date:Plan Name: [place] [address]Rxg: () 09/24/2017 Secondary TITI C Rene Pomerene Insurance:UNITED FETZERDOB: [facility] [id number] [facility] Repository Number: STSMARCOS [place] [id number] [id number] Date:Plan Name: 06/24/2017 TITI C Primary TITI C Rene Pomerene FETZERDOB: Insurance:UNITED FETZERDOB: [facility] [id number] [facility] [id number] Hospital BOX [facility] 1/2 W [facility] Repository MYLES Number: STSHRByron SNIDER STFREDERGENEVABUR [id number] [place], [place] [address]Mzr: Date:Plan Name:U1 (HP) 06/20/2017 TITI C Primary TITI C Rene Pomerene FETZERDOB: Insurance:UNITED FETZERDOB: [facility] [id number] [facility] [id number] Hospital BOX [facility] 1/2 W [facility] MARKET Repository MYLES Number: STSHREVEByron [place] [id number] [place], [place] [address]Iqk: Date:Plan Name:U1 ()
== END 2018-06-06 08:55 | disposition home or self-care (01) ==
LOC: SDC 05:45 → AC 05:47
PROVIDERS: Family Provider Nurse Practitioner Family; PCP Nurse Practitioner Family; Referring Provider Orthopaedic Surgery; Visit Provider Orthopaedic Surgery
PROC: (CPT 64721; principal; 2018-06-06 07:15)
DX: G56.01 Carpal tunnel syndrome, right upper limb (principal); I10 Essential (primary) hypertension; E11.9 Type 2 diabetes mellitus without complications; E78.00 Pure hypercholesterolemia, unspecified; F41.9 Anxiety disorder, unspecified; F32.9 Major depressive disorder, single episode, unspecified; Z79.891 Long term (current) use of opiate analgesic; Z79.4 Long term (current) use of insulin; Z79.899 Other long term (current) drug therapy
CPT/HCPCS: 01810; 64721; 82962; J7120